=== PATIENT | female | born 1945 | race Caucasian/White ===

== ENCOUNTER 2017-12-08 08:30 | Day surgery (SDC) | payer OTHER, SELFPAY ==
[2017-12-02 12:54] VITALS: BMI 19.6
[2017-12-08] VITALS (7 sets, daily range): BP systolic 121–141; BP diastolic 59–78; PULSE 81–144; RESP 10–18; TEMP 36.2–36.6; O2SAT 97–100; BMI 19.6
--- NOTE | 2017-12-08 | PATH_ITS ---
[facility] Accession Number: [id number] . 01 Material submitted: . PART A: BILATERAL OVARIES AND FALLOPIAN TUBES PART B: ENDOMETRIUM AND POLYPS . 02 Diagnosis: A. Bilateral Ovaries and Fallopian Tubes: 1. Papillary serous cystadenoma of ovary. 2. Second ovary and bilateral fallopian tubes with no evidence of neoplasia. . B. Endometrium and Polyps, Biopsies: One fragment of endometrial polyp with focal complex hyperplasia without atypia. Additional separate fragments of endometrial polyps without evidence of neoplasia or hyperplasia. V/12/15/2017 . 02 Comment: As part of routine director of quality control, Dr. Mcduffie also reviewed the H/E slides for this case and agrees with the diagnosis. . 02 Electronically signed: . Zonia Joseph MD, Pathologist NPI- [id number] . 01 Gross description: . (A) Received in formalin, labeled both ovaries + fallopian tubes, are two ovaries (ovary #1-2.7 x 2.1 x 1.5 cm; ovary #2-1.8 x 1.2 x 0.8 cm) with attached fimbriated fallopian tubes (tube #1: length-3.5 cm, diameter-0.5 cm; tube #2: length-3.0 cm, diameter-0.4 cm). The ovaries have hay-white and yellow, smooth shiny flat serosa and staton-white solid cystic parenchyma with corpus albicans identified. The cavities (0.1 cm-1.4 cm) contain clear colorless fluid and irregular multicystic spongy tissue. The fallopian tubes have ahy-purple smooth shiny serosa and staton unremarkable lumens. Section code: (A1) ovary #1, account development representative serial sections; (A2) ovary #2, account development representative serial sections; (A3) fallopian tube #1, account development representative serial sections; (A4) fimbria #1, bivalved, entirely submitted; (A5) fallopian tube #2, account development representative serial sections; (A6) fimbria #2, bivalved, entirely submitted. Additional sections: (A7) remaining ovary #1; (A8) remaining ovary #2; (A9) remaining fallopian tube #1; (A10) remaining fallopian tube #2. Specimen is now entirely submitted. (B) Received in formalin, labeled endometrium + polyps, are multiple fragments of hay-staton rubbery tissue (2.8 x 2.2 x 0.5 cm in aggregate. Entirely submitted in cassette B1. ([id number]) /MRV . 02 Microscopic: . Part A: Immunohistochemical stains were performed on blocks A5 and A6 to evaluate epithelial cells in areas of interest. The control stains showed appropriate reactivity. . RESULTS: Block A5 P53: Normal staining, negative for strong reactivity or absence of reactivity. Ki-67: Rare cells positive. . Block A6 P53: Normal staining, negative for strong reactivity or absence of reactivity. Ki-67: Rare cells positive. . INTERPRETATION: No evidence of neoplastic cell population in the tubal epithelium. . * This test was developed and its performance characteristics determined by [facility]. It has not been cleared or approved by the U.S. Food and Drug Administration. The FDA has determined that such clearance or approval is not necessary. This test is used for clinical purposes. It should not be regarded as investigational or for research. . 02 Pathologist provided ICD-10: D27.9, N84.0 . 02 CPT . 653460, 365553 Performed at: 01 [facility] [address] [place] [address], [place], [place] [id number] MD Amos Collado MD Phone: [phone] Performed at: 02 [place] [address] [place], [place] [id number] MD Graham Ortega MD Phone: [phone]
[2017-12-08] MEDS: LACTATED RINGERS 1,000 ML 42 ML IV (09:00)
--- NOTE | 2017-12-08 10:36 | PM.PREOP ---
Pre-operative Note Interval Note Pre-op Check: Yes History & Physical Reviewed by Physician and Yes Exam Performed Changes: No H&P completed within 30 days and has changed as indicated here:: See note on 12/08/2017
--- NOTE | 2017-12-08 11:36 | SUR.OPER ---
Lithotomy on padded OR bed, head on pillow, arms secured on padded arm boards at <90 degrees abduction. Legs secured in padded yellow fins stirrups.
--- NOTE | 2017-12-08 11:37 | SUR.OPER ---
BOTH ARMS GEL PADDED AND TUCKED AT SIDES
[2017-12-08] MEDS: BUPIVACAINE 0.5% W/ EPI (PF) VIAL 30 ML INJ (11:53)
--- NOTE | 2017-12-08 12:18 | PM.OP.1 ---
Operative Date/Time/Diagnoses Date of procedure: 12/08/17 Time of procedure: 12:19 Pre-op diagnosis: Right ovarian cyst with a family history of ovarian cancer, postmenopausal bleeding Post-op diagnosis: same Procedure & Clinicians Procedure: Laparoscopic BSO, hysteroscopy with D&C and resection of endometrial polyps Same procedure as scheduled: Yes Indications: Incidental finding of right ovarian complex cyst with a family history of ovarian cancer. Postmenopausal bleeding with thickened endometrium on ultrasound. Surgeon: Michelle Avilez Click Yes if Unassisted: Yes Anesthesia Type: General Operative Notes Closure Type: primary Specimen(s): other (Bilateral tubes and ovaries, endometrial polyps and endometrial curetting) Estimated Blood Loss (mL): 25 Blood products transfused: none Procedure in detail: Patient was brought to the operating room where she underwent general anesthesia. She was placed in low yellowfin stirrups and prepped and draped in usual sterile fashion. No antibiotics were indicated. Pulsatile stockings were in place and functional. Warming was with blankets. A single-tooth tenaculum was placed on the anterior lip of the cervix and the cervix dilated to #6 Hegar dilator. The Sulma uterine manipulator was placed and balloon inflated with 3 mL of air. The area of the incisions were injected with half percent Marcaine with epinephrine. An incision was made in the umbilicus with a scalpel. The incision was carried down to the fascial layer which was incised transversely and held with 0 Vicryl suture. The peritoneum was entered bluntly and the Sandhu cannula was placed in the abdomen and tied in place with the 0 suture. The abdomen was insufflated with CO2. Two 5 mm trocar was placed under direct visualization in the right and left lower quadrant. There did not appear to be any damage with placement of the trocars. The right fallopian tube was grasped and the infundibulopelvic ligament was cauterized with the PK generator. Sequential bites were taken across the broad ligament hugging the ovary. The utero-ovarian ligament was cauterized and cut. The tube was cauterized and cut allowing the tube and ovary to be freed. This same procedure was performed on the left side. An Endo-Catch bag was placed down through the Sandhu cannula. Both tubes and ovaries were placed in the bag and brought up through the umbilical incision. They were removed without spilling. Adequate hemostasis was noted. The CO2 was allowed to escape from the abdomen. The trochars were removed. Skin was closed with 4-0 Monocryl. Next the procedure return to the vaginal area. A single-tooth tenaculum was placed on the anterior lip of the cervix. The hysteroscope was placed into the uterus with a sorbitol solution running and under constant suction. The resecting loop set at 100 W of cutting was used to resect multiple polyps down to the level of the endometrium. A endometrial curettage was performed. The polyps and the endometrial curettage was sent to pathology. The patient went to recovery room in good condition counts of instruments and sponges were correct. Estimated blood loss less than 5 mL. The sorbitol solution I=O approximately 2000 mL. Complications: none Condition: stable Disposition: same day surgery Plan for aftercare: Home when awake and stable. Follow-up in 1 week for postop exam
--- NOTE | 2017-12-08 12:42 | SUR.PHASEI ---
patient SR to ST rate of 98-105. Dr. Tong of anesthesia notified. Reports no further f\u need at this time.
[2017-12-08] MEDS: ACETAMINOPHEN 325 MG TABLET 650 MG PO (13:07)
== END 2017-12-08 13:24 | disposition home or self-care (01) ==
PROVIDERS: Family Provider Family Medicine; PCP Family Medicine; Visit Provider Specialist
PROC: 0UT24ZZ Resection of Bilateral Ovaries, Percutaneous Endoscopic Approach (ICD-10-PCS; CPT 58661; principal; 2017-12-08 09:45)
DX: N95.0 Postmenopausal bleeding (principal); R93.8 Abnormal findings on diagnostic imaging of other specified body structures; Z80.41 Family history of malignant neoplasm of ovary; D27.9 Benign neoplasm of unspecified ovary; N84.0 Polyp of corpus uteri
CPT/HCPCS: 58661; 58558; J1100; J2405; J2704; J3010

== ENCOUNTER → 2018-03-06 10:15 | Outpatient (CLI) | payer OTHER, SELFPAY ==
[2018-03-06 12:08] LABS: Add Manual Diff / Slide Review NO; Basophils Percent Auto 0.5 % (0-2); Eosinophils Percent Auto 1.2 % (2-4); Hematocrit 43.8 % (36-46); Mean Corpuscular HGB Conc 34.3 % (30-36); Mean Corpuscular Hemoglobin 33.2 PG (26-34); Mean Corpuscular Volume 96.8 fL (80-100); Monocytes Percent Auto 6.2 % (3-14); Neutrophils Absolute Auto 5000 /uL (3000-5900); Neutrophils Percent Auto 66.1 % (50-75); Platelet Count 327 X10^3/uL (150-400); Red Blood Cell Count 4.52 X10^6/uL (4.0-5.2); Red Cell Distribution Width 12.6 % (11.6-14.8); White Blood Cell Count 7.6 X10^3/uL (4.5-11.0)
[2018-03-06 12:28] LABS: Alanine Aminotransferase 22 IU/L (9-52); Albumin 4.4 g/dL (3.5-5.0); Albumin Globulin Ratio 1.6 (1.0-2.8); Alkaline Phosphatase 60 U/L (38-126); Aspartate Aminotransferase 24 IU/L (14-36); BUN Creatinine Ratio 18.8 (6-22); Bilirubin Total 0.7 mg/dL (0.2-1.3); Blood Urea Nitrogen 15 mg/dL (7-17); Calcium 9.6 mg/dL (8.4-10.2); Carbon Dioxide 26 mmol/L (22-32); Chloride 103 mmol/L (98-107); Estimated Glomerular Filt Rate > 60.0 mL/min (>60); Globulin 2.8 g/dL (1.7-4.1); Glucose 84 mg/dL (80-110); HEMOLYSIS < 15 (0-50); Potassium 3.9 mmol/L (3.4-5.1); Sodium 143 mmol/L (137-145); Total Protein 7.2 g/dL (6.3-8.2)
== END ==
PROVIDERS: PCP Family Medicine; Visit Provider Specialist
DX: Z01.818 Encounter for other preprocedural examination (principal)
CPT/HCPCS: 36415; 80053; 85025

== ENCOUNTER 2018-03-09 13:55 | Day surgery (SDC) | payer OTHER, SELFPAY ==
[2018-03-06 15:30] VITALS: BMI 19.1
[2018-03-09] VITALS (14 sets, daily range): BP systolic 125–145; BP diastolic 45–77; PULSE 84–119; RESP 10–22; TEMP 36.3–37; O2SAT 93–100; BMI 19.1
--- NOTE | 2018-03-09 | PATH_ITS ---
[facility] Accession Number: [id number] . 01 Material submitted: . UTERUS . 02 Diagnosis: Morcellated Supracervical Hysterectomy Specimen: Diffuse adenomyosis, negative for atypia. Atrophic endometrium, negative for atypia. [facility]/03/11/2018 . 02 Electronically signed: . José Miguel Darden MD, Pathologist NPI- [id number] . 01 Gross description: . Received in formalin, labeled uterus, is a morcellated uterus (32 grams, 7.1 x 6.2 x 2.0 cm in aggregate). The cervix, ovaries, and fallopian tubes are absent. The specimen cannot be oriented, and the endometrium and myometrium cannot be grossly measured. The parenchyma is staton with a focally whorled appearance. The serosa is staton smooth and shiny. Residential Aide tissue is submitted in cassettes A1-A4. ([id number]) /[facility] . 02 Pathologist provided ICD-10: N80.0 . 02 CPT . 686216 Performed at: 01 [facility] [address], [place], [place] [id number] MD Amos Collado MD Phone: [phone] Performed at: 02 [facility] [address] [place], [place] [id number] MD Zonia Joseph MD Phone: [phone]
[2018-03-09] MEDS: LACTATED RINGERS 1,000 ML 100 ML IV ×2 (14:11→18:32)
[2018-03-09] MEDS: DEXTROSE 5%-LACTATED RINGERS 1,000 ML 100 ML IV (15:00)
--- NOTE | 2018-03-09 15:12 | PM.PREOP ---
Pre-operative Note Interval Note Pre-op Check: Yes History & Physical Reviewed by Physician and Yes Exam Performed Changes: No
[2018-03-09] MEDS: CEFAZOLIN 2 GM/100 ML FROZ.PIGGY IV (15:35)
--- NOTE | 2018-03-09 15:59 | SUR.OPER ---
Lithotomy on padded OR bed. Lockhart Pad Positioner under torso. Head on pillow, arms padded and tucked at sides. Legs secured in padded yellow fins stirrups.
[2018-03-09] MEDS: BUPIVACAINE 0.5% W/ EPI (PF) VIAL 30 ML INJ (16:07)
--- NOTE | 2018-03-09 16:50 | PM.OP.1 ---
Operative Date/Time/Diagnoses Date of procedure: 03/09/18 Time of procedure: 16:50 Pre-op diagnosis: Postmenopausal bleeding Post-op diagnosis: same Procedure & Clinicians Procedure: Laparoscopic supracervical hysterectomy Same procedure as scheduled: Yes Indications: Postmenopausal bleeding Surgeon: Michelle Avilez Optometrist President/Practice Owner: Maria Teresa Flynn Click Yes if Unassisted: No Anesthesia Type: General Operative Notes Findings: Minor adhesion on the left broad ligament small uterus with small posterior cervical fibroid Closure Type: primary Specimen(s): other (Uterus above the level of bladder) Applied: catheter Estimated Blood Loss (mL): 10 Blood products transfused: none Procedure in detail: Patient is brought to the operating room where she underwent general anesthesia and placed in low [facility] stirrups. She was prepped and draped in the usual sterile fashion. A check list was reviewed with the staff in the room prior to beginning of the case. Patient had pulsatile stockings in place and functional. 2 g of Ancef were in prior to beginning of the case.. A Giang catheter was placed. A single-tooth tenaculum was placed on the anterior lip of the cervix and the cervix dilated to a #6 Hegar dilator. The uterine manipulator was placed through the cervix into the uterus with the balloon inflated with 3 mL of air. The area of the umbilical incision and the 5 mm right and left lower quadrant incisions were injected with Marcaine. An incision was made with scalpel. The verries needle was placed into the abdomen and confirmed in the appropriate place with withdrawal on a syringe and then free flow of fluid down through the needle. The abdomen was insufflated with CO2. The needle was removed and a 5 mm trocar placed without difficulty. There did not appear to be any damage is placement of the trocar. The right and left lower quadrant incisions were made with the scalpel and the trochars placed without damage to internal structures. The PK forceps were used to cauterize sequential bites taken down the broad ligaments. The uterine arteries were cauterized. An incision was made above the level bladder pushing the bladder away from the cervix. The GHAZAL loop was placed around the uterus and the uterus was amputated above the level of the bladder. Bleeding was controlled with the PK forceps. The PK forceps were used to cauterize in the endocervical canal. A supracervical incision was made and an 11 mm port placed. A 15 mm Endo Catch bag was placed in the abdomen. The uterus was placed in the bag and brought up through the suprapubic port site. The uterus was hand morselized. The abdomen was reinsufflated and adequate hemostasis was noted. The trochars were removed and the CO2 allowed escape from the abdomen. The fascia layer of the suprapubic site was repaired with 0 Polysorb suture. Skin was closed with 4-0 nylon suture at the suprapubic site and the other 3 sites. The patient went to recovery room in good condition. Counts of instruments and sponges were correct. Complications: none Condition: stable Disposition: observation Plan for aftercare: Home in a.m. after confirmed patient is stable, tolerating oral medicines and ambulatory
--- NOTE | 2018-03-09 17:18 | SUR.PHASEI ---
1706: assumed care of pt. attempted to call report, floor nurse unavailable
--- NOTE | 2018-03-09 17:40 | SUR.PHASEI ---
RECD REPORT AND PATIENT FROM MELIDA OBREGON. STILL WAITING ON FLOOR TO TAKE PATIENT. NURSE STILL UNAVAILABLE.
[2018-03-09] MEDS: TRAMADOL 50 MG TABLET PO (18:31)
[2018-03-09] MEDS: DOCUSATE 250 MG CAPSULE PO (21:26)
[2018-03-09] MEDS: KETOROLAC 15 MG/ML VIAL IV (21:26)
--- NOTE | 2018-03-09 22:30 | PC.NURSE ---
Pt arrived to floor from PACU with IVF and SCD. Pt reporting minimal to no pain. Giang catheter draining clear/yellow urine. RA 98%. ABD drsg DI with shadow drainage. Tolerating po intake. Oriented to room and call-light.
[2018-03-10] VITALS: O2SAT 97
[2018-03-10] MEDS: KETOROLAC 15 MG/ML VIAL IV ×2 (00:14→06:46)
[2018-03-10 00:33] VITALS: BP 137/67; PULSE 89; RESP 18; TEMP 36.8; O2SAT 97
[2018-03-10] MEDS: TRAMADOL 50 MG TABLET PO (00:53)
[2018-03-10 03:00] VITALS: O2SAT 97
[2018-03-10 05:05] VITALS: BP 120/57; PULSE 70; RESP 18; TEMP 37.1; O2SAT 99
[2018-03-10 06:04] VITALS: O2SAT 99
[2018-03-10] MEDS: ACETAMINOPHEN 325 MG TABLET 650 MG PO (06:47)
[2018-03-10] MEDS: ESTRADIOL 1 MG TABLET PO (09:02)
[2018-03-10] MEDS: GABAPENTIN 400 MG CAPSULE PO (09:02)
[2018-03-10] MEDS: DOCUSATE 250 MG CAPSULE PO (09:02)
[2018-03-10] MEDS: LIOTHYRONINE 5 MCG TABLET PO (09:02)
--- NOTE | 2018-03-10 09:32 | PM.DS.1 ---
History of Present Illness Date Patient Seen: 03/10/18 Time Patient Seen: 09:32 Chief complaint: Postmenopausal bleeding Narrative: Patient underwent a laparoscopic supracervical hysterectomy for postmenopausal bleeding. Discharge Providers Primary care physician: Boby De Oliveira MD Discharge provider: Michelle Avilez MD Discharge Date: 03/10/18 Summary Discharge Diagnosis: Postmenopausal bleeding Hospital Course: Patient underwent a laparoscopic supracervical hysterectomy for postmenopausal bleeding. She did well postoperatively. Her vital signs are stable. She was urinating and ambulatory. Status at Discharge Functional status at discharge: independent ambulation Overall status at discharge: patient is progressing back to baseline Time Spent with Patient Less than 30 minutes Exam Vital Signs (past 8 hours): - 03/10/18 03:00 03/10/18 05:05 03/10/18 06:04 Temperature 98.8 F Pulse Rate 70 Respiratory Rate 18 Blood Pressure 120/57 L Pulse Oximetry 97 99 99 Oxygen Delivery Method Room Air Narrative Exam Narrative: Patient's abdomen is soft with minimal tenderness. Her incisions are clean dry and intact. Extremities without edema and nontender. Discharge Plan Discharge Plan Patient Disposition: Home Discharge Med Rec/Prescriptions Prescriptions: New tramadol 50 mg Tablet 50 mg PO TID PRN (Reason: Pain, Moderate (4-6)) Qty: 20 RF: 0 Continue epinephrine 0.3 MG/0.3 ML auto-injector 0.3 mg IJ PRN PRN (Reason: Shortness Of Breath Or Wheezing) Qty: 0 RF: 0 celecoxib [Celebrex] 100 MG capsule 100 mg PO BIDCC Qty: 60 RF: 12 liothyronine [Cytomel] 5 MCG tablet 5 mcg PO QAM Qty: 90 RF: 3 estradiol [Estrace] 1 mg tablet 1 mg PO QDAY RF: 0 calcium carbonate [Calcium 600] 600 mg calcium (1,500 mg) Tablet 600 mg PO BID RF: 0 gabapentin 400 mg Capsule 400 mg PO DAILY RF: 0 Discontinued medroxyprogesterone 5 mg tablet 5 mg PO QDAY Qty: 90 RF: 3 tramadol 100 mg capsule,ER biphase 24 hr 25-75 200 mg PO DAILY PRN (Reason: pain (scale score 7-10)) Qty: 20 RF: 0 Follow up/Referrals: Michelle Avilez MD [Physician] - (Patient has follow-up appointment in 1 week) Boby De Oliveira MD [Primary Care Provider] - Discharge Orders: Discharge (Order); Ordered 03/10/18 Ordered By: Michelle Avilez Provider Discharge Instructions Diet: Regular Skin/Wound/Dressing Care Report to your healthcare provider any signs of infection, such as:: chills, fever, increased pain and unusual redness Visit Report/Discharge Packet Stand Alone Forms: Surgery Discharge Discharge Data Primary Care Provider: Boby De Oliveira Attending Provider: Michelle Avilez Quality VTE Deep Vein Thrombosis/Pulmonary Embolism Present on Admission: No
--- NOTE | 2018-03-10 11:38 | CM.DANOTE ---
Discharge Planning/Care Management DCP: assessment: Case received this morning, 914, EMR reviewed and d/c to home order noted. Documentation reveals that pt is a 72 year old female who admitted yesterday for a planned gynecological surgery. Surgeon: Dr. Avilez. Payer: [facility] PCP: Dr. Latonia De Oliveira. Went to room to check in with pt but she has already left for home. No concerns re the d/c plan were identified by the care team members. CM Discharge Assessment Start: 03/10/18 11:37 Freq: Status: Active Protocol: Document 03/10/18 11:37 ITV (Rec: 03/10/18 11:38 ITV [id number]) Discharge Planning Assessment Advance Directives? Yes Advance Directives on File No History Provided By Medical Record Prior Living Arrangements House Household Members spouse Comment N/A Review Status In Process Next Review Type Continued Stay Review Pre-Anesthesia Assessment Start: 03/06/18 15:30 Freq: Status: Complete Protocol: Document 03/06/18 15:30 VLJ (Rec: 03/06/18 15:38 VLJ [id number]) Pre-Anesthesia Assessment Patient Information Reviewed Via Chart Review Consent for Planned Operative Procedure( No s) Verified H&P Completed Within 30 Days Yes Seen Specialist in Last 12 Months Yes Specialist Seen Weatherization Technician Height 165.1 cm Weight 52.163 kg Body Mass Index (BMI) 19.1 Hx Anesthesia Reactions Yes: slow to wake up Hx Family Anesthesia Reaction No Hx Malignant Hyperthermia No Hx Blood Transfusion Reaction No Comment Does not do well with pain medicines especially narcotics Anesthesia Review Requested No Information Technology Technician No Smoking Status Never smoker CPAP/BIPAP use not prescribed Currently Taking a Beta Thomas No Anti-Coagulant Therapy No Hx Pacemaker/ICD No Hx Urinary Self Catheterization No Diabetes No Presence of External or Internal Medical No Devices Marital Status Lives With spouse Patient Discharge Plan Description Return Home Advance Directives? Yes Advance Directives on File No
== END 2018-03-10 10:51 | disposition home or self-care (01) ==
LOC: OR 13:57 → AC 20:10
PROVIDERS: Family Provider Family Medicine; PCP Family Medicine; Visit Provider Specialist
PROC: 0UT94ZL Resection of Uterus, Supracervical, Percutaneous Endoscopic Approach (ICD-10-PCS; CPT 58541; principal; 2018-03-09 15:00)
DX: N84.0 Polyp of corpus uteri (principal); E03.9 Hypothyroidism, unspecified
CPT/HCPCS: 58541; J0690; J1100; J1885; J2704; J3010; J7121

== ENCOUNTER → 2018-05-13 10:00 | Outpatient (CLI) | payer OTHER, SELFPAY ==
[2018-03-09 21:18] VITALS: BMI 19.1
[2018-05-13 10:37] LABS: Add Manual Diff / Slide Review NO; Basophils Absolute Auto 100 /uL (0-100); Basophils Percent Auto 0.9 % (0-2); Eosinophils Absolute Auto 100 /uL (0-450); Eosinophils Percent Auto 1.2 % (2-4); Hematocrit 41.1 % (36-46); Hemoglobin 14.2 g/dL (12.0-16.0); Lymphocytes Absolute Auto 2300 /uL (1100-4500); Lymphocytes Percent Auto 40.3 % (25-40); Mean Corpuscular HGB Conc 34.6 % (30-36); Mean Corpuscular Volume 95.5 fL (80-100); Monocytes Absolute Auto 400 /uL (0-900); Monocytes Percent Auto 7.2 % (3-14); Neutrophils Absolute Auto 2900 /uL (1500-7000); Neutrophils Percent Auto 50.4 % (50-75); Platelet Count 309 X10^3/uL (150-400); Red Cell Distribution Width 12.1 % (11.6-14.8); White Blood Cell Count 5.8 X10^3/uL (4.5-11.0)
[2018-05-13 10:45] LABS: Alanine Aminotransferase 30 IU/L (9-52); Albumin 4.5 g/dL (3.5-5.0); Albumin Globulin Ratio 1.6 (1.0-2.8); Alkaline Phosphatase 64 U/L (38-126); Aspartate Aminotransferase 31 IU/L (14-36); BUN Creatinine Ratio 18.9 (6-22); Blood Urea Nitrogen 17 mg/dL (7-17); Calcium 9.9 mg/dL (8.4-10.2); Carbon Dioxide 28 mmol/L (22-32); Chloride 100 mmol/L (98-107); Cholesterol 214 mg/dL (140-199); Estimated Glomerular Filt Rate > 60.0 mL/min (>60); Globulin 2.8 g/dL (1.7-4.1); Glucose 92 mg/dL (80-110); HDL Cholesterol 60 mg/dL (40-60); HEMOLYSIS < 15 (0-50); LDL Cholesterol Calculated 119 mg/dL (<100); Potassium 4.3 mmol/L (3.4-5.1); Sodium 137 mmol/L (137-145); Total Protein 7.3 g/dL (6.3-8.2); Triglycerides 176 mg/dL (35-150)
[2018-05-13 11:15] LABS: TSH w/ Reflex to FT4 1.69 uIU/mL (0.47-4.68)
== END ==
PROVIDERS: Family Provider Family Medicine; PCP Family Medicine; Visit Provider Family Medicine
DX: E03.9 Hypothyroidism, unspecified (principal); Z13.6 Encounter for screening for cardiovascular disorders
CPT/HCPCS: 36415; 80053; 80061; 84443; 85025

== ENCOUNTER → 2018-05-30 09:41 | Outpatient (CLI) | payer OTHER, SELFPAY ==
[2018-03-09 21:18] VITALS: BMI 19.1
--- NOTE | 2018-05-30 | DI.MG.S_ITS ---
BILATERAL DIGITAL SCREENING MAMMOGRAM 3D/2D WITH CAD: 05/30/2018 CLINICAL: Routine screening. Comparison is made to exams dated: 05/26/2017 mammogram, 05/13/2016 mammogram, and 04/11/2015 mammogram - [facility]. The tissue of both breasts is extremely dense, which lowers the sensitivity of mammography. Current study was also evaluated with a Computer Aided Detection (CAD) system. There is irregular equal density architectural distortion with an indistinct margin in the right breast at 8 o'clock middle depth. No other significant masses, calcifications, or other findings are seen in either breast. IMPRESSION: INCOMPLETE: NEEDS ADDITIONAL IMAGING EVALUATION The irregular equal density architectural distortion in the right breast is indeterminate. Mediolateral and spot compression views as well as additional views with possible ultrasound are recommended. This exam was interpreted at Station ID: [id number]. NOTE: For mammograms, a report in lay terms will be sent to the patient. Approximately 15% of breast malignancies will not be visualized mammographically. In the management of a palpable breast mass, a negative mammogram must not discourage biopsy of a clinically suspicious lesion. Electronically Signed By: Amos loya/hellen:06/01/2018 07:39:32 letter sent: Additional Imaging Needed ACR BI-RADS Category 0: Incomplete 3340F
== END ==
PROVIDERS: Family Provider Family Medicine; PCP Family Medicine; Visit Provider Family Medicine
DX: Z12.31 Encounter for screening mammogram for malignant neoplasm of breast (principal)
CPT/HCPCS: 77063; 77067

== ENCOUNTER → 2018-06-15 09:22 | Outpatient (CLI) | payer OTHER, SELFPAY ==
[2018-03-09 21:18] VITALS: BMI 19.1
--- NOTE | 2018-06-15 | DI.MG.S_ITS ---
UNILATERAL RIGHT DIGITAL DIAGNOSTIC MAMMOGRAM 3D/2D WITH ADDITIONAL VIEWS: 06/15/2018 CLINICAL: Additional evaluation requested from prior study. Comparison is made to exams dated: 05/30/2018 mammogram, 05/26/2017 mammogram, 05/13/2016 mammogram, and 04/11/2015 mammogram - [facility]. The tissue of right breast is heterogeneously dense. This may lower the sensitivity of mammography. There is slight architectural distortion in the right breast at 11 o'clock middle depth in the superficial tissue. This is immediately subjacent to a scar marker from remote benign lumpectomy. No associated density is present. No other significant masses or calcifications are seen in the breast. IMPRESSION: INCOMPLETE: NEEDS ADDITIONAL IMAGING EVALUATION The architectural distortion in the right breast is likely a post-lumpectomy scar and is probably benign. This is likely seen better on tomography compared to prior 2D studies. Ultrasound is recommended to exclude underlying solid mass and was immediately performed following this exam. This exam was interpreted at Station ID: [id number]. NOTE: For mammograms, a report in lay terms will be sent to the patient. Approximately 15% of breast malignancies will not be visualized mammographically. In the management of a palpable breast mass, a negative mammogram must not discourage biopsy of a clinically suspicious lesion. Electronically Signed By: Angeli waller/:06/15/2018 12:10:36 ACR BI-RADS Category 0: Incomplete 3340F
--- NOTE | 2018-06-15 09:23 | DI.US.S_ITS ---
LIMITED ULTRASOUND OF RIGHT BREAST: 06/15/2018 CLINICAL: Patient returns today to evaluate a density in the right breast. Comparison is made to exams dated: 06/15/2018 mammogram, 05/30/2018 mammogram, 05/26/2017 mammogram, 05/13/2016 mammogram, and 04/11/2015 mammogram - [facility]. Ultrasound of the right breast upper outer quadrant was performed. No abnormalities were seen sonographically in the right breast. IMPRESSION: PROBABLY BENIGN No sonographic correlate to architectural distortion on mammogram. This is likely normal post surgical scarring. A follow-up right mammogram in 6 months is recommended to demonstrate stability. Findings and recommendations conveyed to the patient. This exam was interpreted at Station ID: [id number]. Electronically Signed By: Angeli waller/:06/15/2018 12:13:51 letter sent: Followup Recommended Ultrasound BI-RADS: 3 Probably benign
== END ==
PROVIDERS: Family Provider Family Medicine; PCP Family Medicine; Visit Provider Family Medicine
DX: R92.8 Other abnormal and inconclusive findings on diagnostic imaging of breast (principal); Z13.820 Encounter for screening for osteoporosis; M85.852 Other specified disorders of bone density and structure, left thigh; Z78.0 Asymptomatic menopausal state; E07.9 Disorder of thyroid, unspecified; Z90.722 Acquired absence of ovaries, bilateral
CPT/HCPCS: 76642; 77065; 77080; G0279

== ENCOUNTER → 2018-09-28 10:34 | Outpatient (CLI) | payer OTHER, SELFPAY ==
[2018-03-09 21:18] VITALS: BMI 19.1
--- NOTE | 2018-09-28 10:36 | DI.RAD.S_ITS ---
PROCEDURE: XR HAND RT MIN 3V INDICATIONS: R knuckle pain after injury TECHNIQUE: 3 views of the hand(s) acquired. COMPARISON: [facility], CR, FINGER RT, 10/07/2008, 10:32. FINDINGS: Bones: No fractures or dislocations. Carpal bones are normally aligned. No suspicious bony lesions. 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 There is also marginal lucencies at the DIP joint of the little finger. Diffuse carpal osteoarthritis. First MTP joint degeneration. First CMC and triscaphe joint degeneration Soft tissues: No suspicious soft tissue calcifications. IMPRESSION: Central erosive appearance of the PIP joint of the little finger, with secondary severe degenerative joint disease. Findings raise possibility of erosive osteoarthritis among other possibilities. Additional possible erosive changes seen at the DIP joint of the little finger. These findings markedly progressed since 10/07/08. No acute fracture Dictated by: Sudeep Douglas M.D. on 09/28/2018 at 12:46 Approved by: Sudeep Douglas M.D. on 09/28/2018 at 12:50
== END ==
PROVIDERS: Family Provider Family Medicine; PCP Family Medicine; Visit Provider Family Medicine
DX: M79.641 Pain in right hand (principal); M19.241 Secondary osteoarthritis, right hand
CPT/HCPCS: 73130

== ENCOUNTER → 2018-12-24 10:40 | Outpatient (CLI) | payer OTHER, SELFPAY ==
[2018-03-09 21:18] VITALS: BMI 19.1
--- NOTE | 2018-12-24 11:27 | PM.TREADMILL ---
Cardiac Stress Test Report Referral & Results Date Patient Seen: 12/24/18 Time Patient Seen: 11:15 Requesting provider: Boby De Oliveira Indication: LBBB Rest ECG: LBBB Procedure Note: After both written and verbal informed consent the patient had an IV started by the diagnostic imaging RN, and then was hooked up to the treadmill monitoring system. The Lexiscan material, and then the Cardiolite tracer, were administered sequentially. An additional 3 min was spent monitoring the patient while supine on the gurney. The patient had a normal response to all infused materials. Impression: Successful Marcia protocol. Will await perfusion imaging. Please note: Actual ECG tracings can be found in the PACS system.
--- NOTE | 2018-12-26 08:51 | DI.NM.S_ITS ---
DATE OF SERVICE: 12/24/2018 PROCEDURE: Pharmacological perfusion study. INDICATIONS: Left bundle branch block. RADIOPHARMACEUTICAL: 26.1 mCi technetium-99m Myoview IV was injected at stress and 26.2 mCi technetium-99m Myoview IV was injected at rest. CARDIAC STRESS: The patient underwent IV Lexiscan perfusion study under the supervision of an attending staff using standard IV Lexiscan protocol. She remained hemodynamically stable. No significant symptoms were reported. Baseline rhythm was sinus with left bundle branch block. During stress, no new significant arrhythmias or ischemic changes were seen. RAW DATA: There was increased subdiaphragmatic activity. GATED STUDY: Resting LV ejection fraction 73% and stress LV ejection fracture 76% without any obvious wall motion abnormalities. Resting end-diastolic volume 64 mL. No transient ischemic dilatation. TID ratio 1.03, which is within normal. Lung/heart ratio 0.35, which is within normal limits. MYOCARDIAL PERFUSION: Stress supine, resting supine, and stress prone images were compared to each other. Stress images showed almost normal myocardial perfusion. During resting supine and stress prone images, there appears to be sgydl-yl-dgjiidnj-sized mildly decreased perfusion of the anteroseptum and anterior wall, which I don't see during stress supine images. CONCLUSION: No reversible ischemia. Stress supine images revealed almost normal myocardial perfusion. I don't see obvious ischemia infarction pattern during stress supine images. The patient has an underlying left bundle branch block, which can create septal perfusion defect. Hence, I will call this study likely a normal myocardial perfusion study. Overall, LV function is preserved. No significant wall motion abnormalities. No transient ischemic dilatation. Lung/heart ratio 0.35, which is within normal limits. Overall, this is a low- risk myocardial perfusion scan. Sabina Musa - AUTHORIZATION MANAGER/fn/ts doc#: [id number]/job#: [id number] dd: 12/25/2018 17:00:00 dt: 12/26/2018 08:39:00 DICTATING MD/COPIES TO: Juan Perez MD COPIES MNE: SCOUT
== END ==
PROVIDERS: Family Provider Family Medicine; PCP Family Medicine; Referring Provider Otolaryngology; Visit Provider Family Medicine
DX: I44.7 Left bundle-branch block, unspecified (principal)
CPT/HCPCS: 78452; 93016; 93017; 93018; A9502; J2785

== ENCOUNTER → 2018-12-30 14:32 | Outpatient (CLI) | payer OTHER, SELFPAY ==
[2018-03-09 21:18] VITALS: BMI 19.1
--- NOTE | 2018-12-30 14:34 | DI.MG.S_ITS ---
UNILATERAL RIGHT DIGITAL DIAGNOSTIC MAMMOGRAM 3D/2D: 12/30/2018 CLINICAL: Patient returns for a 6 month follow up of the right breast. Comparison is made to exams dated: 06/15/2018 mammogram, 05/30/2018 mammogram, 05/26/2017 mammogram, and 06/15/2018 [facility]. The tissue of right breast is heterogeneously dense. This may lower the sensitivity of mammography. Previously identified subtle architectural distortion most compatible with postsurgical scarring in the superior lateral right breast near 11:00 position appears stable to prior comparison mammograms of 06/15/18 and 05/30/18, and correlates with an overlying linear scar marker. Of note, targeted ultrasound of this reported area of concern on 06/15/18 demonstrated no ultrasound mass or abnormality. IMPRESSION: PROBABLY BENIGN Previously identified subtle architectural distortion most compatible with postsurgical scarring in the superior lateral right breast near 11:00 position appears stable to prior comparison mammograms of 06/15/18 and 05/30/18. A follow-up diagnostic mammogram in 6 months with possible ultrasound is recommended to demonstrate continued stability. Mammography of the left breast will be due at that time as well. Consider breast MRI if there is continued clinical concern. The patient is advised to monitor her breasts and to return sooner for reevaluation if she feels anything grow or change in her breasts. This exam was interpreted at Station ID: [id number]. NOTE: For mammograms, a report in lay terms will be sent to the patient. Approximately 15% of breast malignancies will not be visualized mammographically. In the management of a palpable breast mass, a negative mammogram must not discourage biopsy of a clinically suspicious lesion. Electronically Signed By: Cruzito Oropeza M.D. ecl/:12/30/2018 15:25:27 letter sent: Followup Recommended ACR BI-RADS Category 3: Probably benign [id number]
== END ==
PROVIDERS: PCP Family Medicine; Visit Provider Family Medicine
DX: R92.8 Other abnormal and inconclusive findings on diagnostic imaging of breast (principal)
CPT/HCPCS: 77065; G0279

== ENCOUNTER → 2019-05-28 09:17 | Outpatient (CLI) | payer MEDICARE, SELFPAY ==
[2018-03-09 21:18] VITALS: BMI 19.1
[2019-05-28 09:47] LABS: Hematocrit 39.3 % (36-46); Hemoglobin 13.6 g/dL (12.0-16.0); Mean Corpuscular HGB Conc 34.7 % (30-36); Mean Corpuscular Hemoglobin 32.9 PG (26-34); Mean Corpuscular Volume 94.9 fL (80-100); Platelet Count 307 X10^3/uL (150-400); Red Blood Cell Count 4.14 X10^6/uL (4.0-5.2); Red Cell Distribution Width 12.5 % (11.6-14.8); White Blood Cell Count 6.6 X10^3/uL (4.5-11.0)
[2019-05-28 09:55] LABS: Alanine Aminotransferase 14 IU/L (<35); Albumin 3.9 g/dL (3.5-5.0); Albumin Globulin Ratio 1.4 (1.0-2.8); Alkaline Phosphatase 63 U/L (38-126); Aspartate Aminotransferase 26 IU/L (14-36); Bilirubin Total 0.5 mg/dL (0.2-1.3); Blood Urea Nitrogen 16 mg/dL (7-17); Calcium 9.7 mg/dL (8.4-10.2); Carbon Dioxide 27 mmol/L (22-32); Chloride 105 mmol/L (98-107); Cholesterol 176 mg/dL (140-199); Estimated Glomerular Filt Rate > 60.0 mL/min (>60); Globulin 2.8 g/dL (1.7-4.1); Glucose 92 mg/dL (80-110); HDL Cholesterol 62 mg/dL (40-60); HEMOLYSIS < 15 (0-50); LDL Cholesterol Calculated 81 mg/dL (<100); Potassium 4.1 mmol/L (3.4-5.1); Sodium 140 mmol/L (137-145); Total Protein 6.7 g/dL (6.3-8.2); Triglycerides 164 mg/dL (35-150)
[2019-05-28 10:06] LABS: Neutrophils Absolute Manual 3630 /uL (3000-5900); RBC Morphology Normal Morphology; Total Cells Counted 100
[2019-05-28 10:32] LABS: TSH w/ Reflex to FT4 1.52 uIU/mL (0.47-4.68)
== END ==
PROVIDERS: PCP Family Medicine; Referring Provider Family Medicine; Visit Provider Family Medicine
DX: E03.9 Hypothyroidism, unspecified (principal); E78.5 Hyperlipidemia, unspecified
CPT/HCPCS: 36415; 80053; 80061; 84443; 85025

== ENCOUNTER → 2019-09-10 09:40 | Outpatient (CLI) | payer MEDICARE, SELFPAY ==
[2018-03-09 21:18] VITALS: BMI 19.1
--- NOTE | 2019-09-10 09:44 | DI.MG.S_ITS ---
BILATERAL DIGITAL DIAGNOSTIC MAMMOGRAM 3D/2D: 09/10/2019 CLINICAL: Short follow up, due bilateral. Comparison is made to exams dated: 12/30/2018 mammogram, 06/15/2018 mammogram, 05/30/2018 mammogram, 05/26/2017 mammogram, 05/13/2016 mammogram, and 04/11/2015 mammogram - [facility]. The tissue of both breasts is heterogeneously dense. This may lower the sensitivity of mammography. There is a possible architectural distortion in the right breast at 11 o'clock posterior depth which is stable in appearance. This correlates with prior surgery scar. No abnormality seen on prior ultrasound. There is a possible grouped calcification in the left breast posterior depth superior region seen on the mediolateral oblique view only. Calcifications appear more diffuse on additional views. No other significant masses or calcifications are seen in either breast. IMPRESSION: PROBABLY BENIGN 1) The possible architectural distortion in the right breast at 11 o'clock posterior depth is stable and is probably benign. -A follow-up right breast mammogram in 6 months is recommended to demonstrate stability. 2) Possible group calcifications seen in the left breast seen on the MLO view only are diffuse on additional views and are benign. -Return to screening the left breast. Exam findings conveyed to the patient by the Switch Coupler. This exam was interpreted at Station ID: [id number]. NOTE: For mammograms, a report in lay terms will be sent to the patient. Approximately 15% of breast malignancies will not be visualized mammographically. In the management of a palpable breast mass, a negative mammogram must not discourage biopsy of a clinically suspicious lesion. Electronically Signed By: [place] M.D. slc/:09/10/2019 11:13:15 letter sent: Followup Recommended ACR BI-RADS Category 3: Probably benign [id number]
== END ==
PROVIDERS: PCP Family Medicine; Referring Provider Family Medicine; Visit Provider Family Medicine
DX: R92.8 Other abnormal and inconclusive findings on diagnostic imaging of breast (principal)
CPT/HCPCS: 77066; G0279

== ENCOUNTER → 2020-02-16 13:27 | Outpatient (CLI) | payer MEDICARE, SELFPAY ==
[2020-01-26 15:40] VITALS: BMI 19.1
--- NOTE | 2020-02-16 | DI.MG.S_ITS ---
UNILATERAL RIGHT DIGITAL DIAGNOSTIC MAMMOGRAM 3D/2D SHORT-TERM FOLLOW-UP: 02/16/2020 CLINICAL: Short term follow up of the right breast. Comparison is made to exams dated: 09/10/2019 mammogram, 12/30/2018 mammogram, 06/15/2018 mammogram, and 05/30/2018 mammogram - [facility]. The tissue of right breast is heterogeneously dense. This may lower the sensitivity of mammography. There is a possible stable architectural distortion in the right breast at 11 o'clock posterior depth. This correlates with surgery but was not seen on the prior ultrasound. No other significant masses or calcifications are seen in the breast. IMPRESSION: PROBABLY BENIGN The possible stable architectural distortion in the right breast is probably benign. A follow-up mammogram in 6 months is recommended to demonstrate stability. Patient will be due for left breast screening mammograms at the time of the follow up examination. This exam was interpreted at Station ID: [id number]. NOTE: For mammograms, a report in lay terms will be sent to the patient. Approximately 15% of breast malignancies will not be visualized mammographically. In the management of a palpable breast mass, a negative mammogram must not discourage biopsy of a clinically suspicious lesion. Electronically Signed By: Joseph Brunson M.D. ar/:02/16/2020 14:04:11 letter sent: Followup Recommended ACR BI-RADS Category 3: Probably benign [id number]
== END ==
PROVIDERS: PCP Family Medicine; Referring Provider Family Medicine; Visit Provider Family Medicine
DX: R92.8 Other abnormal and inconclusive findings on diagnostic imaging of breast (principal)
CPT/HCPCS: 77065; G0279

== ENCOUNTER → 2020-02-19 11:16 | Outpatient (CLI) | payer MEDICARE, SELFPAY ==
[2020-01-26 15:40] VITALS: BMI 19.1
--- NOTE | 2020-02-19 11:18 | DI.RAD.S_ITS ---
PROCEDURE: XR PELVIS 1-2V INDICATIONS: low back pain TECHNIQUE: 1 view(s) of the pelvis acquired. COMPARISON: [facility], CR, XR LUMBAR SPINE 2-3V, 02/19/2020, 11:25. FINDINGS: Bones: No fractures or dislocations. No suspicious bony lesions. There is yplq-si-orvdrbqy superior joint space narrowing seen of both hips, with associated remodeling changes with subchondral sclerosis and osteophyte formation. Age-appropriate lower lumbar spine degenerative changes are noted. A transitional L5 level is seen, with prominent sacralization. Soft tissues: Visualized bowel gas pattern is normal. No suspicious soft tissue calcifications. IMPRESSION: Pziu-ub-esdsqohh bilateral hip degenerative change. 1 Dictated by: Mateo Moreno M.D. on 02/19/2020 at 11:07 Approved by: Mateo Moreno M.D. on 02/19/2020 at 11:08
--- NOTE | 2020-02-19 11:18 | DI.RAD.S_ITS ---
PROCEDURE: XR LUMBAR SPINE 2-3V INDICATIONS: low back pain TECHNIQUE: 3 views of the lumbar spine were acquired. COMPARISON: [facility], CR, XR PELVIS 1-2V, 02/19/2020, 11:25. FINDINGS: Bones: No displaced fractures are seen. No suspicious lytic or blastic lesions are seen. This patient has transitional lumbar anatomy. For the purposes of this examination, the level with the vestigial ribs is considered to be T12. By this numbering scheme, the L5 level is transitional and relatively highly sacralized. Mild levoconvex scoliotic curvature is noted. Minimal anterolisthesis is seen at L3-4 and there is minimal retrolisthesis at L4-5. Prominent lower lumbar spine facet arthropathy is seen. There is moderate disc space narrowing seen throughout the lower lumbar spine. Soft tissues: Overlying bowel gas pattern is normal. No suspicious soft tissue calcifications. IMPRESSION: Moderate lower lumbar spine degenerative changes are seen. Mild levoconvex scoliosis. Transitional lumbar anatomy, with a highly sacralized L5 level. Dictated by: Mateo Moreno M.D. on 02/19/2020 at 11:04 Approved by: Mateo Moreno M.D. on 02/19/2020 at 11:07
== END ==
PROVIDERS: PCP Family Medicine; Referring Provider Family Medicine; Visit Provider Family Medicine
DX: M54.5 Low back pain (principal); M16.0 Bilateral primary osteoarthritis of hip; M51.36 Other intervertebral disc degeneration, lumbar region; M41.86 Other forms of scoliosis, lumbar region
CPT/HCPCS: 72100; 72170

== ENCOUNTER → 2020-04-11 08:05 | Outpatient (CLI) | payer MEDICARE, SELFPAY ==
[2020-01-26 15:40] VITALS: BMI 19.1
[2020-04-11 09:42] LABS: Add Manual Diff / Slide Review NO; Basophils Absolute Auto 0 /uL (0-100); Basophils Percent Auto 0.6 % (0-2); Eosinophils Absolute Auto 100 /uL (0-450); Eosinophils Percent Auto 1.4 % (2-4); Hematocrit 40.6 % (36-46); Hemoglobin 13.9 g/dL (12.0-16.0); Lymphocytes Absolute Auto 2100 /uL (1100-4500); Lymphocytes Percent Auto 32.9 % (25-40); Mean Corpuscular HGB Conc 34.2 % (30-36); Mean Corpuscular Hemoglobin 32.5 PG (26-34); Mean Corpuscular Volume 95.3 fL (80-100); Monocytes Absolute Auto 400 /uL (0-900); Monocytes Percent Auto 6.4 % (3-14); Neutrophils Absolute Auto 3700 /uL (1500-7000); Neutrophils Percent Auto 58.7 % (50-75); Platelet Count 329 X10^3/uL (150-400); Red Blood Cell Count 4.26 X10^6/uL (4.0-5.2); Red Cell Distribution Width 12.8 % (11.6-14.8); White Blood Cell Count 6.4 X10^3/uL (4.5-11.0)
[2020-04-11 09:49] LABS: Alanine Aminotransferase 15 IU/L (<35); Albumin 4.2 g/dL (3.5-5.0); Albumin Globulin Ratio 1.7 (1.0-2.8); Alkaline Phosphatase 70 U/L (38-126); Aspartate Aminotransferase 27 IU/L (14-36); BUN Creatinine Ratio 24.4 (6-22); Bilirubin Total 0.5 mg/dL (0.2-1.3); Blood Urea Nitrogen 19 mg/dL (7-17); Carbon Dioxide 29 mmol/L (22-32); Chloride 104 mmol/L (98-107); Cholesterol 189 mg/dL (140-199); Estimated Glomerular Filt Rate > 60.0 mL/min (>60); Globulin 2.5 g/dL (1.7-4.1); Glucose 90 mg/dL (80-110); HDL Cholesterol 64 mg/dL (40-60); HEMOLYSIS < 15 (0-50); LDL Cholesterol Calculated 96 mg/dL (<100); Potassium 4.5 mmol/L (3.4-5.1); Sodium 139 mmol/L (137-145); Total Protein 6.7 g/dL (6.3-8.2); Triglycerides 144 mg/dL (35-150)
[2020-04-11 10:43] LABS: Thyroid Stimulating Hormone 2.15 uIU/mL (0.47-4.68)
== END ==
PROVIDERS: PCP Family Medicine; Referring Provider Family Medicine; Visit Provider Family Medicine
DX: E03.9 Hypothyroidism, unspecified (principal)
CPT/HCPCS: 36415; 80053; 80061; 84443; 85025

== ENCOUNTER → 2020-04-25 09:12 | Outpatient (CLI) | payer MEDICARE, SELFPAY ==
[2020-01-26 15:40] VITALS: BMI 19.1
--- NOTE | 2020-04-25 09:14 | DI.ECHO.S_ITS ---
[facility]---------+ [facility] +---------+ : : [address] : : : : [id number] : : : : Phone: [phone]+ Echocardiogram Report + + :Name: ELHAM NÚÑEZ Study Date: 04/25/2020 Height: 65 in : :[facility] ReadingLocation: Weight: 112 lb : : Gender: Female BSA: 1.5 m2 : :: 1945 Age: 75 yrs BP: 137/60 mmHg: :Reason For Study: CARDIOMYOPATHY : :Ordering Physician: Matthew PEARLformed By: Vivian Cabrera : :Referring: SHRAVAN PEARL : + + Interpretation Summary The left ventricle is normal in size and wall thickness. Left ventricular systolic function is mildly reduced. The ejection fraction is estimated to be 40-45%. There has been no significant change since the previous exam. There is a mild dyssynchronous contraction pattern, consistent with a conduction abnormality. Diastolic parameters suggest a relaxation abnormality of the left ventricle, consistent with probable normal filling pressures. The right ventricle is normal in size and function. The right ventricular systolic pressure is estimated to be at least 25 mmHg based on an estimated right atrial pressure of 3 mm Hg. The left atrial size is normal. Right atrial size is normal. There is trace mitral regurgitation. Compared to the prior echo study, there has been a decrease in the severity of mitral regurgitation. There is mild to moderate tricuspid regurgitation. There is no other significant valvular heart disease. The aortic root is normal size. Procedure: A two-dimensional transthoracic echocardiogram with color flow and Doppler was performed. The study quality was technically adequate. Comparison is made with the echocardiogram of 12/25/2018. The patient was in sinus rhythm with heart rates between 64-72 bpm during the exam. Left Ventricle: The left ventricle is normal in size and wall thickness. Left ventricular systolic function is mildly reduced. The ejection fraction is estimated to be 40-45%. There has been no significant change since the previous exam. There is a mild dyssynchronous contraction pattern, consistent with a conduction abnormality. Diastolic parameters suggest a relaxation abnormality of the left ventricle, consistent with probable normal filling pressures. Right Ventricle: The right ventricle is normal in size and function. Atria: The left atrial size is normal. Right atrial size is normal. There is no Doppler evidence for an interatrial shunt. Mitral Valve: The mitral valve is normal in structure and function. There is trace mitral regurgitation. Compared to the prior echo study, there has been a decrease in the severity of mitral regurgitation. Aortic Valve: The aortic valve is trileaflet. The aortic valve opens well. There is no aortic valve stenosis. There is trace aortic regurgitation. Tricuspid Valve: The tricuspid valve is normal in structure and function. There is mild to moderate tricuspid regurgitation. The right ventricular systolic pressure is estimated to be at least 25 mmHg based on an estimated right atrial pressure of 3 mm Hg. Pulmonic Valve: The pulmonic valve is not well visualized. There is trace pulmonic regurgitation. There is no other significant valvular heart disease. Great Vessels: The aortic root is normal size. The ascending aorta could not be visualized. The IVC is of normal diameter and collapses greater than 50% with a sniff. This suggests a low right atrial pressure of 3 mm Hg. Pericardium/ Pleura There is no pericardial effusion. There is no pleural effusion. MMode/2D Measurements & Calculations LVIDd: 3.8 cm LVOT diam: 2.0 cm LVIDs: 2.8 cm Ao root diam: 3.5 cm FS: 26.7 % Ao Arch Diam (Prox Trans): 2.5 cm EPSS: 0.77 cm IVSd: 0.65 cm LVPWd: 0.63 cm LV guan. diameter/BSA (cm/m^2): 2.5 LV sys. diameter/BSA (cm/m^2): 1.8 LA A2 area: 16.3 cm2 RA long axis: 4.4 cm LA A4 area: 11.7 cm2 RA area: 13.4 cm2 LA length (vol): 4.8 cm RA vol: 34.9 ml LA vol: 33.9 ml RA : 22.6 ml/m2 LA vol index: 22.0 ml/m2 IVC diam: 1.1 cm RVD1 (basal): 2.9 cm TAPSE: 1.9 cm Doppler Measurements & Calculations Ao V2 max: 85.2 cm/sec LVOT Max Paddy: 66.2 cm/sec Ao V2 mean: 57.4 cm/sec LV V1 max P.8 mmHg Ao max P.9 mmHg LV V1 VTI: 14.8 cm Ao mean P.6 mmHg AMANDEEP(I,D): 2.5 cm2 Ao V2 VTI: 17.7 cm AMANDEEP(V,D): 2.3 cm2 sev ratio: 0.84 AMANDEEP indexed to BSA (cm^2/m^2): 1.6 MV E max paddy: 60.2 cm/sec TR max paddy: 236.4 cm/sec MV A max paddy: 89.8 cm/sec TR max P.4 mmHg MV E/A: 0.67 PA V2 max: 51.0 cm/sec Med Peak E' Paddy: 5.2 cm/sec PA V2 mean: 35.2 cm/sec E/E' med: 11.7 PA mean P.57 mmHg Lat Peak E' Paddy: 6.3 cm/sec PA pr(Accel): 22.5 mmHg E/E' lat: 9.5 E/e' average: 10.6 MV dec time: 0.28 sec SV(LVOT): 44.8 ml Reading Physician:05:08 PM
== END ==
PROVIDERS: PCP Family Medicine; Referring Provider Internal Medicine Cardiovascular Disease; Visit Provider Internal Medicine Cardiovascular Disease
DX: I07.1 Rheumatic tricuspid insufficiency (principal); I42.9 Cardiomyopathy, unspecified
CPT/HCPCS: 93306

== ENCOUNTER 2020-05-19 18:17 | Emergency (ER) | payer MEDICARE, SELFPAY ==
[2020-01-26 15:40] VITALS: BMI 19.1
[2020-05-19] VITALS (10 sets, daily range): BP systolic 132–175; BP diastolic 53–72; PULSE 62–81; RESP 14–16; TEMP 36.4; O2SAT 95–100; BMI 18.6
--- NOTE | 2020-05-19 20:17 | ED.HA ---
HPI - Headache General Chief Complaint: Headache Stated Complaint: HEADACHES FOR A WHILE Time Seen by Provider: 05/19/20 20:01 Source: patient Mode of arrival: Ambulatory Limitations: no limitations History of Present Illness HPI Narrative: Patient is a 75-year-old female who is here for a head CT. Patient states that she has had a headache every day for the past several months. She has seen her primary doctor for this. She states that her primary doctor ordered a head CT however nothing has been scheduled yet because of insurance approval and scheduling issues. She comes to the emergency department today for continued headache which she describes as all over her head and behind her eyes and is a pounding sensation. She does not have a history of headaches. She states that it is maybe slightly worse than what it has been but otherwise it has been the same headache for the past several weeks/months. She was told by primary doctor's office that she should just come to the emergency department to get a head CT. Related Data Home Medications Medication Instructions Recorded Confirmed calcium carbonate [Calcium 600] 600 mg PO BID 12/08/17 05/10/20 cholecalciferol (vitamin D3) 125 5,000 unit PO DAILY 05/20/18 05/10/20 mcg (5,000 unit) capsule multivitamin 1 tab PO DAILY 05/20/18 05/10/20 potassium gluconate 500 mg (83 mg) 500 mg PO DAILY tab 05/20/18 05/10/20 tablet pyridoxine (vitamin B6) 100 mg 100 mg PO DAILY tab 05/20/18 05/10/20 tablet tretinoin 0.05 % topical cream 1 applictn TOP BEDTIME 05/20/18 05/10/20 vitamin B complex 1 tab PO DAILY 05/20/18 05/10/20 vitamin B complex 1 tab PO DAILY 05/20/18 05/10/20 vitamin E 400 unit capsule 400 unit PO DAILY 05/20/18 05/10/20 Previous Rx's Medication Instructions Recorded liothyronine 5 mcg tablet 5 mcg PO QAM #90 tab 04/03/20 medroxyprogesterone 2.5 mg tablet 1.25 mg PO QDAY #45 tab 04/03/20 estradiol 1 mg tablet 1 mg PO QDAY #90 tab 04/17/20 gabapentin 100 mg capsule 100 mg PO DAILY #30 cap 04/17/20 gabapentin 300 mg capsule 300 mg PO BEDTIME #30 cap 04/17/20 mirtazapine 15 mg tablet 7.5 mg PO DAILY #30 tab 04/17/20 celecoxib 100 mg capsule 100 mg PO BID #60 cap 05/08/20 tramadol 50 mg tablet 50 mg PO DAILY PRN #10 tab 05/16/20 Allergies Allergy/AdvReac Type Severity Reaction Status Date / Time latex [LATEX] Allergy Severe ANAPHYLAXSI Verified 05/19/20 18:22 S adhesive tape AdvReac Mild SENSITIVE Verified 05/19/20 18:22 codeine AdvReac Mild Confusion Verified 05/19/20 18:22 diazepam [DIAZEPAM] AdvReac Mild N/V Verified 05/19/20 18:22 erythromycin base AdvReac Mild N/V Verified 05/19/20 18:22 [ERYTHROMYCIN BASE] oxycodone [From OxyContin] AdvReac Mild Confusion Verified 05/19/20 18:22 [email or web address] Allergy Intermediate Uncoded 05/10/20 10:33 Review of Systems Constitutional Constitutional: Denies frequent falls and Reports headache(s) Eyes Eyes: Denies change in vision ENT Ears, Nose, Mouth, and Throat: Denies vertigo, Denies dizziness and Reports headache(s) Cardiovascular Cardiovascular: Denies chest pain and Denies dyspnea Respiratory Respiratory: Denies dyspnea Gastrointestinal Gastrointestinal: Denies abdominal pain Integumentary/Breasts Skin/Breast: Denies rash Neurologic Neurologic: Denies vertigo, Denies dizziness, Denies frequent falls and Reports headache(s) Hematologic/Lymphatic On Anticoagulants: No Allergic/Immunologic Allergic/Immunologic: Denies urticaria Patient History Medical History Acute pain in female pelvis Acute right hip pain Ankle fracture (2009) Bilateral piriformis syndrome Carpal tunnel syndrome (1999) Cataract (2012) Chicken pox Complex cyst of right ovary Endometrial thickening on ultrasound GERD (gastroesophageal reflux disease) (2011) Hypothyroidism (2013) Iliotibial band syndrome, left leg Left bundle branch block Left-sided low back pain with left-sided sciatica Lumbar region somatic dysfunction Measles Multiple actinic keratoses Pelvic somatic dysfunction Postmenopausal Postmenopausal bleeding Rubella Sacral region somatic dysfunction Segmental and somatic dysfunction of abdomen and other regions Shoulder pain (2009) Skin cancer (~1983) Somatic dysfunction of lower extremity Tinnitus Surgical History Anesthesia History of bilateral tubal ligation History of carpal tunnel repair (1999) History of cataract removal with insertion of prosthetic lens (2011) History of hysterectomy, supracervical (~03/09/18) History of nasal surgery (1955) Hx of BSO (bilateral salpingo-oophorectomy) (~12/08/17) Status post arthroscopy (2009) Family History Brother Age: 79 Adopted Diabetes mellitus Father Rheumatic heart failure Alcoholism Mother Abdominal malignant neoplasm Migraines Sister No problems noted. Daughter Hayfever Son No problems noted. Social History marital status: household members: spouse Smoking Status: Never smoker alcohol intake: current substance use type: does not use Smoking Status: Never smoker alcohol intake frequency: holidays/special occasions only Substance Use Type: does not use Exam Initial Vital Signs Initial Vital Signs: Vital Signs Temperature 97.6 F 05/19/20 18:20 Pulse Rate 81 05/19/20 18:20 Respiratory Rate 14 05/19/20 18:20 Blood Pressure 175/72 H 05/19/20 18:20 Pulse Oximetry 96 05/19/20 18:20 Const General: cooperative and comfortable Limitations: mental status not altered HENMT Head: normal to inspection and normocephalic Eyes General: appearance normal, both eyes and all related structures Resp Effort & Inspection: normal respiratory effort Cardio Rate: regular rate Skin Lesions: no lesions Rashes: no rashes Neuro General: patient alert, patient awake and patient oriented x3 Cognition: normal cognition Speech: speech normal Extrem General: normal to inspection Psych Appearance: grossly normal and well kempt Scores GCS Solon coma scale eye opening: Spontaneous Kolby coma scale verbal response: Orientated Solon coma scale motor response: Obey commands Kolby coma scale total score: 15 Course Orders Ordered: ED Orders 05/19/20 20:18 CT head/brain wo con Stat Discontinued Medications Diphenhydramine HCl (Diphenhydramine 50 Mg/Ml Vial) 25 mg IV NOW ONE Stop: 05/19/20 20:18 Last Admin: 05/19/20 20:49 Dose: 25 mg Documented by: YUKO Sodium Chloride (Normal Saline 0.9%) 1,000 mls @ 1,000 mls/hr IV BOLUS ONE Stop: 05/19/20 21:16 Last Infusion: 05/19/20 21:42 Dose: 0 mls/hr Documented by: Admin: 05/19/20 20:49 Dose: 1,000 mls/hr Documented by: YUKO Metoclopramide HCl (Metoclopramide 10 Mg/2 Ml Inj) 10 mg IV NOW ONE Stop: 05/19/20 20:18 Last Admin: 05/19/20 20:49 Dose: 10 mg Documented by: YUKO Vital Signs Vital signs: Vital Signs - 8 hr 05/19/20 18:20 05/19/20 19:18 05/19/20 19:30 Temperature 97.6 F Pulse Rate 81 69 64 Respiratory Rate 14 Blood Pressure 175/72 H Pulse Oximetry 96 95 100 05/19/20 20:00 05/19/20 20:30 05/19/20 20:52 Temperature Pulse Rate 67 64 72 Respiratory Rate Blood Pressure 150/66 H Pulse Oximetry 100 100 97 05/19/20 21:00 05/19/20 21:30 05/19/20 21:40 Temperature Pulse Rate 71 66 62 Respiratory Rate Blood Pressure 139/59 L 140/65 132/53 L Pulse Oximetry 96 99 98 05/19/20 21:43 Temperature Pulse Rate 62 Respiratory Rate 16 Blood Pressure 132/53 L Pulse Oximetry 98 MDM - Headache Imaging Data CT scan - head: Radiologist's Impression: [address] [id number] Scan ReportSigned Patient: Sabina Musa CMR#: [id number]: 5Acct:[id number]/Sex: 75 / FDate of Service: 05/19/20Loc: EDAccession Number: [id number] Procedure: CT head/brain wo con Ordering Provider: Nahum Iglesias D.O. PROCEDURE: CT HEAD/BRAIN WO CON INDICATIONS: headache for 5 weeks TECHNIQUE: Noncontrast 4.5 mm thick angled axial sections acquired from the foramen magnum to the vertex, with coronal and sagittal reformats. For radiation dose reduction, the following was used: automated exposure control, adjustment of mA and/or kV according to patient size. COMPARISON: None. FINDINGS: Image quality: Excellent. CSF spaces: Basal cisterns are patent. No extra-axial fluid collections. The ventricles are symmetric in size and shape. Brain: No intracranial bleeds or masses. There is cerebral volume loss for age, with resultant ventricular and sulcal prominence. There are periventricular and deep white matter chronic small vessel ischemic changes. There is intracranial internal carotid artery atherosclerosis. Skull and face: Calvarium and visualized facial bones appear intact, without suspicious lesions. Sinuses: Visualized sinuses and mastoids are clear. IMPRESSION: No acute intracranial disease process. Dictated by: Oriana Barba MD, PhD on 05/19/2020 at 21:08 Approved by: Oriana Barba MD, PhD on 05/19/2020 at 21:10 [facility] Narrative Medical decision making narrative: Patient does have a nonfocal neurologic exam. Has had head CT for the past several months. Her head CT is unremarkable. Reports improvement of symptoms after medications. I feel we can hold on further workup for now. She was given the results of her head CT and she will contact her primary provider for follow-up. Discharge Plan Departure Patient Disposition: Home Clinical Impression: Headache Instructions: DI for Headache Activity Restrictions/Additional Instructions: Your head CT today is unremarkable. Continue all of your medications as directed and I recommend that you contact your primary doctor on Friday for follow-up. Return to the emergency department for any new symptoms Prescriptions: No Action mirtazapine [Remeron] 15 mg tablet 7.5 mg PO DAILY Qty: 30 RF: 0 estradiol [Estrace] 1 mg tablet 1 mg PO QDAY Qty: 90 RF: 3 gabapentin 100 mg capsule 100 mg PO DAILY Qty: 30 RF: 11 gabapentin 300 mg capsule 300 mg PO BEDTIME Qty: 30 RF: 6 medroxyprogesterone 2.5 mg tablet 1.25 mg PO QDAY Qty: 45 RF: 3 liothyronine [Cytomel] 5 mcg tablet 5 mcg PO QAM Qty: 90 RF: 3 celecoxib 100 mg capsule 100 mg PO BID Qty: 60 RF: 5 tramadol 50 mg tablet 50 mg PO DAILY PRN (Reason: pain) Qty: 10 RF: 0 multivitamin tablet 1 tab PO DAILY RF: 0 pyridoxine (vitamin B6) 100 mg tablet 100 mg PO DAILY RF: 0 vitamin B complex [B Complex 1] tablet 1 tab PO DAILY RF: 0 vitamin E 400 unit capsule 400 unit PO DAILY RF: 0 cholecalciferol (vitamin D3) 5,000 unit capsule 5,000 unit PO DAILY RF: 0 potassium gluconate 500 mg (83 mg) tablet 500 mg PO DAILY RF: 0 tretinoin [Retin-A] 0.05 % cream 1 applictn TOP BEDTIME RF: 0 vitamin B complex [B Complex-Vitamin B12] tablet 1 tab PO DAILY RF: 0 calcium carbonate [Calcium 600] 600 mg calcium (1,500 mg) Tablet 600 mg PO BID RF: 0 Referrals: Boby De Oliveira MD [Primary Care Provider] -
[2020-05-19] MEDS: METOCLOPRAMIDE 10 MG/2 ML INJ IV (20:49)
[2020-05-19] MEDS: diphenhydrAMINE 50 MG/ML VIAL 25 MG IV (20:49)
[2020-05-19] MEDS: SODIUM CHLORIDE 0.9% 1,000 ML 1000 ML IV (20:49)
== END 2020-05-19 21:44 | disposition home or self-care (01) ==
LOC: ED 20:01 → AC 21:37 → ED 21:37
PROVIDERS: Emergency Provider Emergency Medicine; PCP Family Medicine; Referring Provider Emergency Medicine
DX: R51.9 Headache, unspecified (principal)
CPT/HCPCS: 36415; 70450; 96361; 96374; 96375; 99284; J1200; J2765

== ENCOUNTER → 2020-07-18 09:38 | Outpatient (CLI) | payer MEDICARE, SELFPAY ==
[2020-01-26 15:40] VITALS: BMI 19.1
[2020-07-18 11:15] LABS: BUN Creatinine Ratio 22.9 (6-22); Blood Urea Nitrogen 19 mg/dL (7-17); Calcium 9.7 mg/dL (8.4-10.2); Carbon Dioxide 29 mmol/L (22-32); Chloride 103 mmol/L (98-107); Estimated Glomerular Filt Rate > 60.0 mL/min (>60); Glucose 106 mg/dL (80-110); HEMOLYSIS < 15 (0-50); Sodium 139 mmol/L (137-145)
== END ==
PROVIDERS: PCP Family Medicine; Referring Provider Internal Medicine Cardiovascular Disease; Visit Provider Internal Medicine Cardiovascular Disease
DX: I42.9 Cardiomyopathy, unspecified (principal)
CPT/HCPCS: 36415; 80048

== ENCOUNTER → 2020-08-02 12:42 | Outpatient (CLI) | payer MEDICARE, SELFPAY ==
[2020-01-26 15:40] VITALS: BMI 19.1
--- NOTE | 2020-08-02 12:43 | DI.MG.S_ITS ---
BILATERAL DIGITAL DIAGNOSTIC MAMMOGRAM 3D/2D: 08/02/2020 CLINICAL: SHORT FOLLOW UP, DUE BILATERALLY. Comparison is made to exams dated: 02/16/2020 mammogram, 09/10/2019 mammogram, 12/30/2018 mammogram, 06/15/2018 mammogram, and 05/30/2018 mammogram - [facility]. The tissue of both breasts is heterogeneously dense. This may lower the sensitivity of mammography. Previously identified subtle architectural distortion most compatible with postsurgical scarring in the superior lateral right breast near 11:00 position appears stable to prior comparison mammograms of 06/15/18 and 05/30/18, and correlates with an overlying linear scar marker. Of note, targeted ultrasound of this reported area of concern on 06/15/18 demonstrated no ultrasound mass or abnormality. No other significant masses, calcifications, or other findings are seen in either breast. IMPRESSION: BENIGN Previously identified subtle architectural distortion most compatible with postsurgical scarring in the superior lateral right breast near 11:00 position appears stable to prior comparison mammograms dating back to at least 06/15/18 and 05/30/18. This right breast finding resembles post-surgical scarring and is benign as it has demonstrated two years of stability. There is no mammographic evidence of malignancy. Return to annual mammogram screening schedule is recommended. Findings and recommendations were conveyed to the patient during today's evaluation. This exam was interpreted at Station ID: [id number]. NOTE: For mammograms, a report in lay terms will be sent to the patient. Approximately 15% of breast malignancies will not be visualized mammographically. In the management of a palpable breast mass, a negative mammogram must not discourage biopsy of a clinically suspicious lesion. Electronically Signed By: Feliz Peres M.D. aty/:08/02/2020 14:38:41 letter sent: Normal Exam ACR BI-RADS Category 2: Benign Finding(s) 3342F
== END ==
PROVIDERS: PCP Family Medicine; Referring Provider Family Medicine; Visit Provider Family Medicine
DX: R92.8 Other abnormal and inconclusive findings on diagnostic imaging of breast (principal)
CPT/HCPCS: 77066; G0279

== ENCOUNTER → 2020-08-10 14:25 | Outpatient (CLI) | payer MEDICARE, SELFPAY ==
[2020-01-26 15:40] VITALS: BMI 19.1
[2020-08-10 18:32] LABS: BUN Creatinine Ratio 29.5 (6-22); Blood Urea Nitrogen 28 mg/dL (7-17); Calcium 10.5 mg/dL (8.4-10.2); Carbon Dioxide 31 mmol/L (22-32); Chloride 100 mmol/L (98-107); Estimated Glomerular Filt Rate 57.3 mL/min (>60); Glucose 138 mg/dL (80-110); HEMOLYSIS < 15 (0-50); Potassium 4.4 mmol/L (3.4-5.1); Sodium 138 mmol/L (137-145)
== END ==
PROVIDERS: PCP Family Medicine; Referring Provider Internal Medicine Cardiovascular Disease; Visit Provider Internal Medicine Cardiovascular Disease
DX: I42.9 Cardiomyopathy, unspecified (principal)
CPT/HCPCS: 36415; 80048

== ENCOUNTER → 2020-09-04 12:33 | Outpatient (CLI) | payer MEDICARE, SELFPAY ==
[2020-01-26 15:40] VITALS: BMI 19.1
[2020-09-04 13:45] LABS: Blood Urea Nitrogen 15 mg/dL (7-17); Calcium 10.3 mg/dL (8.4-10.2); Carbon Dioxide 27 mmol/L (22-32); Chloride 101 mmol/L (98-107); Estimated Glomerular Filt Rate 54.1 mL/min (>60); Glucose 97 mg/dL (80-110); HEMOLYSIS < 15 (0-50); Sodium 134 mmol/L (137-145)
== END ==
PROVIDERS: PCP Family Medicine; Referring Provider Internal Medicine Cardiovascular Disease; Visit Provider Internal Medicine Cardiovascular Disease
DX: I42.8 Other cardiomyopathies (principal)
CPT/HCPCS: 36415; 80048

== ENCOUNTER → 2020-10-26 11:55 | Outpatient (CLI) | payer MEDICARE, SELFPAY ==
[2020-01-26 15:40] VITALS: BMI 19.1
--- NOTE | 2020-10-26 11:58 | DI.RAD.S_ITS ---
PROCEDURE: XR ELBOW RT MIN 3V INDICATIONS: RT elbow pain, numbness, weakness TECHNIQUE: 3 views of the elbow were acquired. COMPARISON: None. FINDINGS: Bones: No fractures or dislocations. No suspicious bony lesions. Soft tissues: No elbow joint effusion. No suspicious soft tissue calcifications. IMPRESSION: No acute osseous lesion. If symptoms and/or clinical suspicion for pathology persists, further assessment with repeat radiographs (7-10 days) or advanced imaging (e.g. CT, MRI or bone scan) should be considered. Dictated by: Oriana Barba MD, PhD on 10/26/2020 at 13:03 Approved by: Oriana Barba MD, PhD on 10/26/2020 at 13:05
== END ==
PROVIDERS: PCP Family Medicine; Referring Provider Physician Assistant; Visit Provider Physician Assistant
DX: M25.522 Pain in left elbow (principal)
CPT/HCPCS: 73080

== ENCOUNTER → 2021-05-30 08:32 | Outpatient (CLI) | payer OTHER, SELFPAY ==
[2020-01-26 15:40] VITALS: BMI 19.1
[2021-05-30 09:06] LABS: Add Manual Diff / Slide Review NO; Basophils Absolute Auto 0 /uL (0-100); Basophils Percent Auto 0.5 % (0-2); Eosinophils Absolute Auto 100 /uL (0-450); Eosinophils Percent Auto 1.1 % (2-4); Hematocrit 38.7 % (36-46); Hemoglobin 13.5 g/dL (12.0-16.0); Lymphocytes Absolute Auto 2300 /uL (1100-4500); Lymphocytes Percent Auto 36.2 % (25-40); Mean Corpuscular HGB Conc 34.9 % (30-36); Mean Corpuscular Hemoglobin 32.8 PG (26-34); Monocytes Absolute Auto 500 /uL (0-900); Monocytes Percent Auto 8.6 % (3-14); Neutrophils Absolute Auto 3400 /uL (1500-7000); Neutrophils Percent Auto 53.6 % (50-75); Platelet Count 345 X10^3/uL (150-400); Red Blood Cell Count 4.11 X10^6/uL (4.0-5.2); Red Cell Distribution Width 12.8 % (11.6-14.8); White Blood Cell Count 6.3 X10^3/uL (4.5-11.0)
[2021-05-30 09:22] LABS: Alanine Aminotransferase 23 IU/L (<35); Albumin 4.2 g/dL (3.5-5.0); Albumin Globulin Ratio 1.7 (1.0-2.8); Alkaline Phosphatase 71 U/L (38-126); Aspartate Aminotransferase 30 IU/L (14-36); BUN Creatinine Ratio 19.4 (6-22); Bilirubin Total 0.8 mg/dL (0.2-1.3); Blood Urea Nitrogen 18 mg/dL (7-17); Calcium 9.7 mg/dL (8.4-10.2); Carbon Dioxide 28 mmol/L (22-32); Chloride 104 mmol/L (98-107); Cholesterol 189 mg/dL (140-199); Estimated Glomerular Filt Rate 58.6 mL/min (>60); Globulin 2.5 g/dL (1.7-4.1); Glucose 89 mg/dL (80-110); HDL Cholesterol 50 mg/dL (40-60); HEMOLYSIS < 15 (0-50); LDL Cholesterol Calculated 113 mg/dL (<100); Potassium 4.6 mmol/L (3.4-5.1); Sodium 136 mmol/L (137-145); Total Protein 6.7 g/dL (6.3-8.2); Triglycerides 131 mg/dL (35-150)
[2021-05-30 09:51] LABS: TSH w/ Reflex to FT4 2.08 uIU/mL (0.47-4.68)
== END ==
PROVIDERS: PCP Family Medicine; Referring Provider Family Medicine; Visit Provider Family Medicine
DX: E03.9 Hypothyroidism, unspecified (principal); I44.7 Left bundle-branch block, unspecified; I50.20 Unspecified systolic (congestive) heart failure
CPT/HCPCS: 36415; 80053; 80061; 84443; 85025

== ENCOUNTER → 2021-06-01 12:43 | Outpatient (CLI) | payer OTHER, SELFPAY ==
[2020-01-26 15:40] VITALS: BMI 19.1
--- NOTE | 2021-06-01 12:47 | DI.RAD.S_ITS ---
PROCEDURE: XR DEXA APPENDICULAR SKELETON INDICATIONS: osteopenia COMPARISON: None. FINDINGS: This blank DEXA report has been sent in error by the PACS system. The correct and complete report will be forthcoming in 1-2 days. Thank you for your patience and understanding. Dictated by: Oriana Barba MD, PhD on 06/02/2021 at 7:42 Approved by: Oriana Barba MD, PhD on 06/02/2021 at 7:42
== END ==
PROVIDERS: PCP Family Medicine; Referring Provider Family Medicine; Visit Provider Family Medicine
DX: Z78.0 Asymptomatic menopausal state (principal); M85.852 Other specified disorders of bone density and structure, left thigh; E07.9 Disorder of thyroid, unspecified; Z90.722 Acquired absence of ovaries, bilateral
CPT/HCPCS: 77081

== ENCOUNTER → 2021-08-03 12:26 | Outpatient (CLI) | payer OTHER, SELFPAY ==
[2020-01-26 15:40] VITALS: BMI 19.1
--- NOTE | 2021-08-03 | DI.MG.S_ITS ---
BILATERAL DIGITAL SCREENING MAMMOGRAM 3D/2D WITH CAD: 08/03/2021 CLINICAL: Routine screening. Comparison is made to exams dated: 08/02/2020 mammogram, 09/10/2019 mammogram, and 05/30/2018 mammogram - . The tissue of both breasts is heterogeneously dense. This may lower the sensitivity of mammography. Current study was also evaluated with a Computer Aided Detection (CAD) system. No significant masses, calcifications, or other findings are seen in either breast. There has been no significant interval change. IMPRESSION: NEGATIVE There is no mammographic evidence of malignancy. A 1 year screening mammogram is recommended. This exam was interpreted at Station ID: [id number]. NOTE: For mammograms, a report in lay terms will be sent to the patient. Approximately 15% of breast malignancies will not be visualized mammographically. In the management of a palpable breast mass, a negative mammogram must not discourage biopsy of a clinically suspicious lesion. Electronically Signed By: Feliz zamora/hellen:08/03/2021 13:07:24 letter sent: Normal Exam ACR BI-RADS Category 1: Negative 3341F
== END ==
PROVIDERS: PCP Family Medicine; Referring Provider Family Medicine; Visit Provider Family Medicine
DX: Z12.31 Encounter for screening mammogram for malignant neoplasm of breast (principal)
CPT/HCPCS: 77063; 77067

== ENCOUNTER → 2021-09-03 14:56 | Outpatient (CLI) | payer OTHER, SELFPAY ==
[2020-01-26 15:40] VITALS: BMI 19.1
[2021-09-03 15:30] LABS: BUN Creatinine Ratio 27.2 (6-22); Blood Urea Nitrogen 25 mg/dL (7-17); Calcium 9.6 mg/dL (8.4-10.2); Carbon Dioxide 28 mmol/L (22-32); Chloride 101 mmol/L (98-107); Estimated Glomerular Filt Rate > 60 mL/min (>60); Glucose 103 mg/dL (80-110); HEMOLYSIS < 15 (0-50); Potassium 4.9 mmol/L (3.4-5.1); Sodium 136 mmol/L (137-145)
== END ==
PROVIDERS: PCP Family Medicine; Referring Provider Internal Medicine Cardiovascular Disease; Visit Provider Internal Medicine Cardiovascular Disease
DX: I42.8 Other cardiomyopathies (principal)
CPT/HCPCS: 36415; 80048

== ENCOUNTER → 2021-10-19 13:22 | Outpatient (CLI) | payer OTHER, SELFPAY ==
[2020-01-26 15:40] VITALS: BMI 19.1
--- NOTE | 2021-10-19 13:24 | DI.RAD.S_ITS ---
PROCEDURE: XR HIP W PEL IF DONE RT 2V INDICATIONS: hip pain TECHNIQUE: AP pelvis with lateral view(s) of the right hip(s). COMPARISON: None. FINDINGS: Bones: No fractures or dislocations. Pelvic ring appears intact. No suspicious bony lesions. Soft tissues: The visualized bowel gas pattern is normal. No suspicious soft tissue calcifications. IMPRESSION: No acute fracture. No osseous lesion. If symptoms and/or clinical suspicion for pathology persist, further assessment with repeat, or advanced imaging (e.g., CT, MRI, or bone scan) may be helpful for further assessment. Dictated by: Travis Jean M.D. on 10/19/2021 at 15:21 Transcribed by: TIMOTHY on 10/19/2021 at 15:22 Approved by: Travis Jean M.D. on 10/19/2021 at 16:49
== END ==
PROVIDERS: PCP Family Medicine; Referring Provider Family Medicine; Visit Provider Family Medicine
DX: M25.551 Pain in right hip (principal)
CPT/HCPCS: 73502

== ENCOUNTER → 2021-12-18 14:04 | Outpatient (CLI) | payer OTHER, SELFPAY ==
[2020-01-26 15:40] VITALS: BMI 19.1
--- NOTE | 2021-12-18 14:05 | DI.RAD.S_ITS ---
PROCEDURE: XR CERVICAL SPINE 2V OR 3V INDICATIONS: neck pain and headaches TECHNIQUE: 3 view(s) of the cervical spine were acquired. COMPARISON: None. FINDINGS: Bones: No fractures or dislocations to the T1 level. The lateral masses of C1 are not well seen secondary to difficulties in positioning. Multilevel disc height loss with endplate sclerosis and spurring, most notably and moderate at the C4-C5 and moderate to severe at the C5-C6 level. Mild multilevel mid and lower cervical spine facet joint arthropathy and multilevel uncovertebral hypertrophy Soft tissues: No prevertebral soft tissue swelling. IMPRESSION: Multilevel cervical spine spondylosis, most notably at the C4-C5 and C5-C6 levels. Dictated by: Chele Cano Solo Interpreted: Chapo Park MD on 12/18/2021 at 15:59 Transcribed by: KHALIDA on 12/18/2021 at 16:00 Approved by: Chapo [place] M.D. on 12/18/2021 at 18:25
== END ==
PROVIDERS: PCP Family Medicine; Referring Provider Family Medicine; Visit Provider Family Medicine
DX: M54.2 Cervicalgia (principal); R51.9 Headache, unspecified; M47.812 Spondylosis without myelopathy or radiculopathy, cervical region
CPT/HCPCS: 72040

== ENCOUNTER → 2022-04-30 11:17 | Outpatient (CLI) | payer OTHER, SELFPAY ==
[2020-01-26 15:40] VITALS: BMI 19.1
[2022-04-30 12:11] LABS: Free T3, Triiodothyronine Free 4.78 pg/mL (2.77-5.27)
[2022-04-30 12:25] LABS: TSH w/ Reflex to FT4 1.69 uIU/mL (0.47-4.68)
== END ==
PROVIDERS: PCP Family Medicine; Referring Provider Family Medicine; Visit Provider Family Medicine
DX: E03.9 Hypothyroidism, unspecified (principal); Z79.899 Other long term (current) drug therapy
CPT/HCPCS: 36415; 84443; 84481

== ENCOUNTER → 2022-06-05 08:55 | Outpatient (CLI) | payer OTHER, SELFPAY ==
[2020-01-26 15:40] VITALS: BMI 19.1
[2022-06-05 10:20] LABS: Add Manual Diff / Slide Review NO; Basophils Absolute Auto 0 /uL (0-100); Basophils Percent Auto 0.4 % (0-2); Eosinophils Absolute Auto 0 /uL (0-450); Eosinophils Percent Auto 0.6 % (2-4); Hematocrit 38.1 % (36-46); Hemoglobin 13.3 g/dL (12.0-16.0); Lymphocytes Absolute Auto 1500 /uL (1100-4500); Lymphocytes Percent Auto 25.7 % (25-40); Mean Corpuscular HGB Conc 34.8 % (30-36); Mean Corpuscular Hemoglobin 32.8 PG (26-34); Mean Corpuscular Volume 94.3 fL (80-100); Monocytes Absolute Auto 400 /uL (0-900); Monocytes Percent Auto 6.8 % (3-14); Neutrophils Absolute Auto 4000 /uL (1500-7000); Neutrophils Percent Auto 66.5 % (50-75); Platelet Count 324 X10^3/uL (150-400); Red Blood Cell Count 4.04 X10^6/uL (4.0-5.2); Red Cell Distribution Width 13.1 % (11.6-14.8)
[2022-06-05 10:40] LABS: Alanine Aminotransferase 24 IU/L (<35); Albumin 4.1 g/dL (3.5-5.0); Albumin Globulin Ratio 1.6 (1.0-2.8); Alkaline Phosphatase 80 U/L (38-126); Aspartate Aminotransferase 27 IU/L (14-36); BUN Creatinine Ratio 20.9 (6-22); Bilirubin Total 0.7 mg/dL (0.2-1.3); Blood Urea Nitrogen 19 mg/dL (7-17); Calcium 9.2 mg/dL (8.4-10.2); Carbon Dioxide 25 mmol/L (22-32); Chloride 107 mmol/L (98-107); Estimated Glomerular Filt Rate > 60 mL/min (>60); Globulin 2.5 g/dL (1.7-4.1); Glucose 88 mg/dL (80-110); HEMOLYSIS < 15 (0-50); Potassium 4.3 mmol/L (3.4-5.1); Sodium 139 mmol/L (137-145); Total Protein 6.6 g/dL (6.3-8.2)
[2022-06-05 11:04] LABS: TSH w/ Reflex to FT4 1.99 uIU/mL (0.47-4.68)
== END ==
PROVIDERS: PCP Family Medicine; Referring Provider Family Medicine; Visit Provider Family Medicine
DX: E03.9 Hypothyroidism, unspecified (principal); F41.1 Generalized anxiety disorder; G89.29 Other chronic pain; I44.7 Left bundle-branch block, unspecified; M25.539 Pain in unspecified wrist
CPT/HCPCS: 36415; 80053; 84443; 85025

== ENCOUNTER → 2022-06-26 13:32 | Outpatient (CLI) | payer OTHER, SELFPAY ==
[2020-01-26 15:40] VITALS: BMI 19.1
--- NOTE | 2022-06-26 13:34 | DI.RAD.S_ITS ---
PROCEDURE: XR HIP W PEL IF DONE RT 2V INDICATIONS: hip pain TECHNIQUE: 2 views of the hip were acquired. COMPARISON: [facility], CR, XR HIP W PEL IF DONE RT 2V, 10/19/2021, 14:25. FINDINGS: Bones: No fractures or dislocations. No suspicious bony lesions. The visualized pelvic ring appears intact. Mild nonuniform joint space narrowing. No osteophytosis. Soft tissues: No suspicious soft tissue calcifications or masses. IMPRESSION: Mild right hip osteoarthritis. Dictated by: Yefri Diaz M.D. on 06/26/2022 at 15:13 Approved by: Yefri Diaz M.D. on 06/26/2022 at 15:13
== END ==
PROVIDERS: Family Provider Family Medicine; PCP Family Medicine; Referring Provider Family Medicine; Visit Provider Family Medicine
DX: M25.551 Pain in right hip (principal); M16.11 Unilateral primary osteoarthritis, right hip
CPT/HCPCS: 73502

== ENCOUNTER → 2022-07-18 14:27 | Outpatient (CLI) | payer OTHER, SELFPAY ==
[2020-01-26 15:40] VITALS: BMI 19.1
== END ==
PROVIDERS: Family Provider Family Medicine; PCP Family Medicine; Referring Provider Family Medicine; Visit Provider Family Medicine
DX: M25.531 Pain in right wrist (principal); M25.532 Pain in left wrist; G89.29 Other chronic pain
CPT/HCPCS: 95886; 95911

== ENCOUNTER → 2022-08-05 10:19 | Outpatient (CLI) | payer OTHER, SELFPAY ==
[2020-01-26 15:40] VITALS: BMI 19.1
--- NOTE | 2022-08-05 | DI.MG.S_ITS ---
BILATERAL DIGITAL SCREENING MAMMOGRAM 3D/2D WITH CAD: 08/05/2022 CLINICAL: Routine screening. Comparison is made to exams dated: 08/03/2021 mammogram, 08/02/2020 mammogram, 02/16/2020 mammogram, and 09/10/2019 mammogram - [facility]. Both breasts are heterogeneously dense, which may obscure small masses (category c / 51-75% glandular tissue). Current study was also evaluated with a Computer Aided Detection (CAD) system. There are benign post operative findings in the right breast. No significant masses, calcifications, or other findings are seen in either breast. There has been no significant interval change. IMPRESSION: BENIGN There is no mammographic evidence of malignancy. A 1 year screening mammogram is recommended. Based on the Tyrer Cuzick model (a risk assessment model) the patient's lifetime risk is 6.7% and her 10 year risk is 0.0%. According to the ACR, ACS, and NCCN guidelines, an annual breast MRI exam along with mammogram is recommended if the patient's lifetime risk is 20% or greater. This exam was interpreted at Station ID: [id number]. NOTE: For mammograms, a report in lay terms will be sent to the patient. Approximately 15% of breast malignancies will not be visualized mammographically. In the management of a palpable breast mass, a negative mammogram must not discourage biopsy of a clinically suspicious lesion. Electronically Signed By: Chapo gardiner/hellen:08/05/2022 12:15:07 letter sent: Normal Exam ACR BI-RADS Category 2: Benign Finding(s) 3342F
== END ==
PROVIDERS: Family Provider Family Medicine; PCP Family Medicine; Referring Provider Family Medicine; Visit Provider Family Medicine
DX: Z12.31 Encounter for screening mammogram for malignant neoplasm of breast (principal)
CPT/HCPCS: 77063; 77067

== ENCOUNTER → 2022-09-19 09:44 | Outpatient (CLI) | payer OTHER, SELFPAY ==
[2020-01-26 15:40] VITALS: BMI 19.1
[2022-09-19 12:23] LABS: Alanine Aminotransferase 29 IU/L (<35); Albumin 4.2 g/dL (3.5-5.0); Albumin Globulin Ratio 1.4 (1.0-2.8); Alkaline Phosphatase 75 U/L (38-126); Aspartate Aminotransferase 32 IU/L (14-36); BUN Creatinine Ratio 25.3 (6-22); Bilirubin Total 0.6 mg/dL (0.2-1.3); Blood Urea Nitrogen 23 mg/dL (7-17); Calcium 9.4 mg/dL (8.4-10.2); Carbon Dioxide 31 mmol/L (22-32); Chloride 99 mmol/L (98-107); Estimated Glomerular Filt Rate > 60 mL/min (>60); Globulin 2.9 g/dL (1.7-4.1); Glucose 76 mg/dL (80-110); HEMOLYSIS < 15 (0-50); Magnesium 2.3 mg/dL (1.6-2.3); Potassium 3.7 mmol/L (3.4-5.1); Sodium 137 mmol/L (137-145); Total Protein 7.1 g/dL (6.3-8.2)
== END ==
PROVIDERS: Family Provider Family Medicine; PCP Family Medicine; Referring Provider Physician Assistant; Visit Provider Physician Assistant
DX: I42.8 Other cardiomyopathies (principal)
CPT/HCPCS: 36415; 80053; 83735

== ENCOUNTER → 2023-04-26 08:26 | Outpatient (CLI) | payer OTHER, SELFPAY ==
[2020-01-26 15:40] VITALS: BMI 19.1
[2023-04-26 09:03] LABS: Add Manual Diff / Slide Review NO; Basophils Absolute Auto 0 /uL (0-100); Basophils Percent Auto 0.1 % (0-2); Eosinophils Absolute Auto 0 /uL (0-450); Hematocrit 37.9 % (36-46); Hemoglobin 13.3 g/dL (12.0-16.0); Lymphocytes Absolute Auto 1500 /uL (1100-4500); Mean Corpuscular Hemoglobin 33.2 PG (26-34); Monocytes Absolute Auto 400 /uL (0-900); Monocytes Percent Auto 3.2 % (3-14); Neutrophils Absolute Auto 10700 /uL (1500-7000); Neutrophils Percent Auto 84.7 % (50-75); Platelet Count 344 X10^3/uL (150-400); Red Blood Cell Count 3.99 X10^6/uL (4.0-5.2); Red Cell Distribution Width 12.3 % (11.6-14.8); White Blood Cell Count 12.7 X10^3/uL (4.5-11.0)
[2023-04-26 09:19] LABS: Alanine Aminotransferase 19 IU/L (<35); Albumin 4.2 g/dL (3.5-5.0); Albumin Globulin Ratio 1.4 (1.0-2.8); Alkaline Phosphatase 56 U/L (38-126); Aspartate Aminotransferase 26 IU/L (14-36); BUN Creatinine Ratio 25.9 (6-22); Bilirubin Total 0.7 mg/dL (0.2-1.3); Blood Urea Nitrogen 22 mg/dL (7-17); Calcium 9.9 mg/dL (8.4-10.2); Carbon Dioxide 27 mmol/L (22-32); Chloride 102 mmol/L (98-107); Cholesterol 214 mg/dL (140-199); Estimated Glomerular Filt Rate > 60 mL/min (>60); Globulin 2.9 g/dL (1.7-4.1); Glucose 104 mg/dL (80-110); HDL Cholesterol 58 mg/dL (40-60); HEMOLYSIS < 15 (0-50); LDL Cholesterol Calculated 128 mg/dL (<100); Potassium 4.4 mmol/L (3.4-5.1); Sodium 137 mmol/L (137-145); Total Protein 7.1 g/dL (6.3-8.2); Triglycerides 138 mg/dL (35-150)
[2023-04-26 09:50] LABS: TSH w/ Reflex to FT4 0.97 uIU/mL (0.47-4.68)
== END ==
PROVIDERS: Family Provider Family Medicine; PCP Family Medicine; Referring Provider Family Medicine; Visit Provider Family Medicine
DX: I50.20 Unspecified systolic (congestive) heart failure (principal); I44.7 Left bundle-branch block, unspecified; E03.9 Hypothyroidism, unspecified
CPT/HCPCS: 36415; 80053; 80061; 84443; 85025

== ENCOUNTER → 2023-08-19 09:51 | Outpatient (CLI) | payer OTHER, SELFPAY ==
[2020-01-26 15:40] VITALS: BMI 19.1
--- NOTE | 2023-08-19 09:52 | DI.MG.S_ITS ---
BILATERAL DIGITAL SCREENING MAMMOGRAM 3D/2D WITH CAD: 08/19/2023 CLINICAL: Routine screening. Comparison is made to exams dated: 08/05/2022 mammogram, 08/03/2021 mammogram, and 08/02/2020 mammogram - [facility]. Both breasts are heterogeneously dense, which may obscure small masses (category c / 51-75% glandular tissue). Current study was also evaluated with a Computer Aided Detection (CAD) system. There are benign post operative findings in the right breast. No significant masses, calcifications, or other findings are seen in either breast. There has been no significant interval change. IMPRESSION: BENIGN There is no mammographic evidence of malignancy. A 1 year screening mammogram is recommended. Based on the Tyrer Cuzick model (a risk assessment model) the patient's lifetime risk is 6.1% and her 10 year risk is 0.0%. According to the ACR, ACS, and NCCN guidelines, an annual breast MRI exam along with mammogram is recommended if the patient's lifetime risk is 20% or greater. This exam was interpreted at Station ID: [id number]. NOTE: For mammograms, a report in lay terms will be sent to the patient. Approximately 15% of breast malignancies will not be visualized mammographically. In the management of a palpable breast mass, a negative mammogram must not discourage biopsy of a clinically suspicious lesion. Electronically Signed By: Joseph skinner/hellen:08/19/2023 13:06:51 letter sent: Normal Exam ACR BI-RADS Category 2: Benign Finding(s) 3342F
== END ==
PROVIDERS: Family Provider Family Medicine; PCP Family Medicine; Referring Provider Family Medicine; Visit Provider Family Medicine
DX: Z12.31 Encounter for screening mammogram for malignant neoplasm of breast (principal); R92.333 Mammographic heterogeneous density, bilateral breasts
CPT/HCPCS: 77063; 77067

== ENCOUNTER → 2023-12-18 09:36 | Outpatient (CLI) | payer OTHER, SELFPAY ==
[2020-01-26 15:40] VITALS: BMI 19.1
[2023-12-18 10:45] LABS: Add Manual Diff / Slide Review NO; Basophils Absolute Auto 100 /uL (0-100); Basophils Percent Auto 0.8 % (0-2); Eosinophils Absolute Auto 100 /uL (0-450); Eosinophils Percent Auto 0.8 % (2-4); Hematocrit 40.2 % (36-46); Hemoglobin 14.1 g/dL (12.0-16.0); Lymphocytes Absolute Auto 2100 /uL (1100-4500); Mean Corpuscular HGB Conc 35.1 % (30-36); Mean Corpuscular Hemoglobin 33.2 PG (26-34); Mean Corpuscular Volume 94.5 fL (80-100); Monocytes Absolute Auto 400 /uL (0-900); Monocytes Percent Auto 6.3 % (3-14); Neutrophils Absolute Auto 4500 /uL (1500-7000); Neutrophils Percent Auto 63.1 % (50-75); Platelet Count 374 X10^3/uL (150-400); Red Blood Cell Count 4.25 X10^6/uL (4.0-5.2); Red Cell Distribution Width 12.6 % (11.6-14.8); White Blood Cell Count 7.1 X10^3/uL (4.5-11.0)
[2023-12-18 11:14] LABS: Alanine Aminotransferase 16 IU/L (<35); Albumin 4.2 g/dL (3.5-5.0); Albumin Globulin Ratio 1.8 (1.0-2.8); Alkaline Phosphatase 66 U/L (38-126); Aspartate Aminotransferase 28 IU/L (14-36); BUN Creatinine Ratio 18.2 (6-22); Bilirubin Total 0.9 mg/dL (0.2-1.3); Blood Urea Nitrogen 18 mg/dL (7-17); C-Reactive Protein Quant < 0.5 mg/dL (<1.0); Carbon Dioxide 26 mmol/L (22-32); Chloride 101 mmol/L (98-107); Estimated Glomerular Filt Rate 58 mL/min (>60); Globulin 2.4 g/dL (1.7-4.1); Glucose 85 mg/dL (80-110); HEMOLYSIS < 15 (0-50); Potassium 4.8 mmol/L (3.4-5.1); Sodium 135 mmol/L (137-145); Total Protein 6.6 g/dL (6.3-8.2)
[2023-12-18 11:28] LABS: Erythrocyte Sedimentation Rate 7 MM/HR (0-20)
== END ==
PROVIDERS: Family Provider Family Medicine; PCP Family Medicine; Referring Provider Family Medicine; Visit Provider Family Medicine
DX: R51.9 Headache, unspecified (principal); M25.50 Pain in unspecified joint
CPT/HCPCS: 36415; 80053; 85025; 85651; 86140

== ENCOUNTER → 2023-12-30 08:41 | Outpatient (CLI) | payer OTHER, SELFPAY ==
[2020-01-26 15:40] VITALS: BMI 19.1
--- NOTE | 2023-12-30 | DI.MRI.S_ITS ---
PROCEDURE: MR HIP LT WO CON INDICATIONS: Unilateral primary osteoarthritis, left hip TECHNIQUE: Noncontrast coronal T1 spin echo and STIR through the bony pelvis. Coronal and axial T2 fast spin echo with fat saturation, sagittal T1 spin echo, and oblique axial T2 fast spin echo with fat saturation through the hip. COMPARISON: None. FINDINGS: Heterogeneous signal with increased T2 weighted signal, irregularity of the anterior labrum suspicious for degenerative changes/tear, and of the ligamentum teres which is somewhat uncommon but suggestive of versus chronic injury/tear of the ligamentum teres. Mild diffuse cartilaginous thinning related to degenerative changes of the acetabulum and if left femoral head predominantly anteriorly-superiorly. No MR evidence of fracture or dislocation. Heterogeneous signal throughout the bone marrow of the sacrum, lower lumbar spine, pelvis and proximal femurs commonly related to mildly hematopoietic marrow. Subchondral cyst is noted in the anterior femoral head into the femoral neck measuring up to 9 mm. Incidental note is made of moderately prominent pelvic, parauterine vessels partially imaged suggestive of pelvic venous insufficiency syndrome. No avascular necrosis of the femoral heads. Tendons and ligaments: Abnormal increased T2 weighted signal within and surrounding the distal gluteus minimus and gluteus medius muscles and tendons suspicious for tendinopathy versus partial tear. Mild increased T2 weighted signal without abnormal thickening of the iliotibial tract proximally. The iliopsoas tendon appears intact, without adjacent bursal fluid collections or evidence for impingement syndrome. The origin of the hamstring tendon is intact at the ischial tuberosity, as well as the associated sacrotuberous ligament. The straight and reflected heads of the rectus femoris muscle origin as well as the sartorius and tensor fossa elvi appear intact. No muscle atrophy. Soft tissues: Quadratus femoris muscle demonstrates no internal edema to suggest ischiofemoral impingement. The proximal sciatic neurovascular bundle appears normal adjacent to the hamstring tendons. No free pelvic fluid. Bladder wall thickness is normal partially imaged. Image quality: Diagnostic. Exam is limited by patient motion artifacts. IMPRESSION: Heterogeneous bone marrow signal is nonspecific but commonly related to mildly hematopoietic marrow. Heterogeneous signal, irregularity of the anterior labrum suspicious for degenerative changes/tear, and of the ligamentum teres. Mild diffuse cartilaginous thinning related to degenerative changes of the acetabulum and left femoral head. Moderately prominent pelvic vessels suggestive of pelvic venous insufficiency syndrome. Abnormal increased signal within and surrounding the distal gluteus minimus and gluteus medius muscles and tendons suspicious for tendinopathy versus partial tear. Mild increased T2 weighted signal, mild edema of the iliotibial tract proximally. No MR evidence of fracture or dislocation. Dictated by: Santosh Ribera M.D. on 12/31/2023 at 18:42 Approved by: Santosh Ribera M.D. on 12/31/2023 at 19:03
== END ==
PROVIDERS: Family Provider Family Medicine; PCP Family Medicine; Referring Provider Orthopaedic Surgery; Visit Provider Orthopaedic Surgery
DX: M16.12 Unilateral primary osteoarthritis, left hip (principal)
CPT/HCPCS: 73721

== ENCOUNTER → 2024-09-13 12:47 | Outpatient (CLI) | payer MEDICARE, SELFPAY ==
[2020-01-26 15:40] VITALS: BMI 19.1
--- NOTE | 2024-09-13 12:47 | DI.MG.S_ITS ---
MM screening mammo BI: 09/13/2024. BI-RADS: 2 CLINICAL: 79-year old female for bilateral screening mammogram. Tyrer-Cuzick lifetime risk of 1.6%. No personal or first-degree family history of breast cancer. History of ovarian cancer in one first-degree relative. The patient had a prior right breast biopsy. PRIOR EXAMS 08/19/2023, 08/05/2022, 08/03/2021, 08/02/2020, 02/16/2020, 09/10/2019, 12/30/2018, 06/15/2018, 05/30/2018, 05/26/2017, 05/13/2016, 04/11/2015. MAMMOGRAPHY TECHNIQUE: 2D and 3D (tomosynthesis) digital mammographic views obtained, with additional images as needed for full coverage. Current study was also evaluated with a Computer Aided Detection (CAD) system. DENSITY C. The breasts are heterogeneously dense, which may obscure small masses. MAMMOGRAPHY FINDINGS Right: Benign-appearing post-surgical changes noted on the right. There are no suspicious masses, calcifications, or other findings in the breast. No significant change from comparison. Left: No suspicious mass, asymmetry, microcalcification, or other abnormality seen. No significant change from comparison. IMPRESSION: Right * No evidence of malignancy with benign findings. Left * No evidence of malignancy. RECOMMENDATIONS Bilateral * Annual screening mammography. OVERALL ASSESSMENT CATEGORY BI-RADS-2: Benign. The [employer] recommends annual screening mammography beginning at age 40 for women with average risk of breast cancer. ELECTRONICALLY SIGNED: Angeli Beebe M.D. on 09/13/2024 at 04:40:35 PM PT Interpreting Station ID: [id number]
== END ==
LOC: MAMMO 12:47
PROVIDERS: PCP Family Medicine; Referring Provider Family Medicine; Visit Provider Family Medicine
DX: Z12.31 Encounter for screening mammogram for malignant neoplasm of breast (principal); R92.333 Mammographic heterogeneous density, bilateral breasts; Z80.41 Family history of malignant neoplasm of ovary
CPT/HCPCS: 77063; 77067

== ENCOUNTER → 2025-01-10 13:35 | Outpatient (CLI) | payer MEDICARE, SELFPAY ==
[2020-01-26 15:40] VITALS: BMI 19.1
[2025-01-10 15:19] LABS: Alanine Aminotransferase 14 IU/L (<35); Albumin 4.3 g/dL (3.5-5.0); Albumin Globulin Ratio 1.7 (1.0-2.8); Alkaline Phosphatase 64 U/L (38-126); Blood Urea Nitrogen 26 mg/dL (7-17); Calcium 10.3 mg/dL (8.4-10.2); Carbon Dioxide 26 mmol/L (22-32); Chloride 103 mmol/L (98-107); Estimated Glomerular Filt Rate 58 mL/min (>60); Globulin 2.6 g/dL (1.7-4.1); Glucose 87 mg/dL (70-99); HEMOLYSIS < 15 (0-50); Potassium 4.4 mmol/L (3.4-5.1); Sodium 138 mmol/L (137-145); Total Protein 6.9 g/dL (6.3-8.2)
== END ==
PROVIDERS: PCP Family Medicine; Referring Provider Internal Medicine Cardiovascular Disease; Visit Provider Internal Medicine Cardiovascular Disease
DX: I44.7 Left bundle-branch block, unspecified (principal); I50.32 Chronic diastolic (congestive) heart failure
CPT/HCPCS: 36415; 80053

== ENCOUNTER → 2025-02-21 09:30 | Outpatient (CLI) | payer MEDICARE, SELFPAY ==
[2020-01-26 15:40] VITALS: BMI 19.1
[2025-02-21 10:23] LABS: Add Manual Diff / Slide Review NO; Hematocrit 39.1 % (36-46); Hemoglobin 13.7 g/dL (12.0-16.0); Lymphocytes Absolute Auto 1900 /uL (1100-4500); Mean Corpuscular HGB Conc 35.0 % (30-36); Mean Corpuscular Hemoglobin 32.9 PG (26-34); Mean Corpuscular Volume 93.8 fL (80-100); Platelet Count 323 X10^3/uL (150-400)
[2025-02-21 11:14] LABS: Free T3, Triiodothyronine Free 3.69 pg/mL (2.77-5.27); Free T4, Direct Thyroxine 0.89 ng/dL (0.78-2.19)
[2025-02-21 11:28] LABS: Thyroid Stimulating Hormone 1.53 uIU/mL (0.47-4.68)
== END ==
PROVIDERS: PCP Family Medicine; Referring Provider Family Medicine; Visit Provider Family Medicine
DX: R51.9 Headache, unspecified (principal); M19.90 Unspecified osteoarthritis, unspecified site; Z63.6 Dependent relative needing care at home; M25.50 Pain in unspecified joint
CPT/HCPCS: 36415; 84439; 84443; 84481; 85025; 85651; 86140; 86430